=== PATIENT | male | born 1940 | race Caucasian/White ===

== ENCOUNTER 2024-03-22 09:58 | Emergency (ER) | payer MEDICARE, OTHER, SELFPAY ==
--- NOTE | ~2024-03-22 | CT_ITS ---
EXAMINATION: CT abdomen pelvis wo con DATE: 03/22/2024 12:39 INDICATION: Left flank pain. TECHNIQUE: Computed tomography (CT) of the abdomen and pelvis was performed without intravenous contr ast. Automated exposure control and iterative reconstruction technique were employed. The dose-length product was 358.58 mGy-cm. COMPARISON: None. FINDINGS: The visualized portions of the lung bases demonstrate mild atelectasis. There is mild bronc hiectasis in right middle lobe. There are tree-in-bud opacities in centrilobular nodules in right mid dle lobe. No pleural effusion. The heart size is normal. No pericardial effusion. The liver and gallb ladder are normal. Calcifications in the spleen are consistent with old granulomatous disease. There is a calcification in the pancreas, consistent with chronic pancreatitis. The adrenal glands and kidn eys are normal. There is no urolithiasis. There is a left inguinal hernia containing fat. There is an anastomosis in the sigmoid colon. There are no dilated loops of bowel. The appendix is not visualize d. There are no pathologically enlarged lymph nodes. There is no free intraperitoneal fluid. There is a total left hip arthroplasty. There is severe lumbar spondylosis. IMPRESSION: 1. No urolithiasis. 2. Left inguinal hernia containing fat. 3. Mild pneumonia in right lung middle lobe. Reviewed, dictated and finalized at location A.
[2024-03-22 10:27] VITALS: BP 169/68; PULSE 57; RESP 16; TEMP 36.7
[2024-03-22 11:51] VITALS: BP 188/82; PULSE 51; RESP 16; O2SAT 100
[2024-03-22 11:53] LABS: Basophils Percent Auto 0.6 % (0.2-1.2); Eosinophils Absolute Auto 0.1 K/mm3 (0-0.3); Eosinophils Percent Auto 2.5 % (0-4.4); Hematocrit 41.6 % (42.0-52.0); Hemoglobin 13.7 g/dL (14.0-18.0); Immature Granulocyte Absolute 0.01 K/mm3 (0.00-0.031); Immature Granulocyte Percent A 0.2 % (0-0.5); Lymphocytes Absolute Auto 1.47 K/mm3 (0.9-3.2); Mean Corpuscular HGB Conc 32.9 g/dl (32-36); Mean Corpuscular Hemoglobin 32.2 pg (26-34); Mean Corpuscular Volume 97.7 fl (80-100); Mean Platelet Volume 9.3 fl (7.4-10.4); Monocytes Absolute Auto 0.6 K/mm3 (0.1-0.6); Monocytes Percent Auto 11.2 % (2.6-8.5); Neutrophils Percent Auto 57.5 % (45.5-73.1); Platelet Count Result 156 k/mm3 (150-375); Red Blood Count 4.26 M/mm3 (4.6-6.20); Red Cell Distribution Width 12.3 % (11.5-14.5); White Blood Count 5.3 K/mm3 (4.5-10.0)
[2024-03-22 11:55] LABS: Add Urine Microscopic? YES; Appearance Urine Clear (Clear); Bilirubin Urine Negative (Negative); Blood Urine Negative (Negative); Color Urine Dark Yellow (Yellow); Glucose Urine UA Negative (Negative); Ketones Urine Negative (Negative); Leukocyte Esterase Ur Negative LEU/UL (Negative); Nitrate Urine Negative (Negative); Protein Urine Negative (Negative); Specific Grav Ur 1.018 (1.001-1.035); Urobilinogen Urine 0.2 mg/dL (<2.0); pH Urine 6.5 (5.0-9.0)
[2024-03-22 12:04] LABS: Alanine Aminotransferase 17 U/L (6-50); Albumin Level 4.2 g/dL (3.5-5.1); Alkaline Phosphatase 95 U/L (38-126); Anion Gap 7 mmol/L (4-12); Aspartate Amino Transferase 34 U/L (17-59); Bilirubin,Total 0.5 mg/dL (0.2-1.3); Blood Urea Nitrogen 27 mg/dL (9-20); Calcium 9.4 mg/dL (8.4-10.2); Carbon Dioxide 25 mmol/L (22-30); Chloride 106 mmol/L (98-107); Estimated CRCL calculation 48 ml/min; Estimated Glomerular Filt Rate > 60; Glucose 85 mg/dL (65-110); Potassium 4.8 mmol/L (3.4-5.0); Sodium 138 mmol/L (137-145)
--- NOTE | 2024-03-22 12:27 | ED.RECABL ---
HPI - Recheck/Abnormal Lab/Rx General Chief Complaint: Recheck/Abnormal Lab/Rx Stated Complaint: kidney function recheck Time Seen by Provider: 03/22/24 11:41 Source: patient Mode of arrival: ambulatory Limitations: no limitations History of Present Illness HPI narrative: This is an 84-year-old male with PMH of BPH who presents to the ED with chief complaint of left flank pain for the past couple of weeks. States the pain has been relatively intermittent and it was actually much worse last week. He has chronic low back pain and follows with pain management for this. He has been taking his pain medications as prescribed. States the pain is somewhat worse in certain positions. States that this week this pain has started to decrease but his PCP wanted get him seen and have his kidneys checked out. Does endorse chronic urinary frequency with BPH and follows with Urology. denies new back pain, fevers, chills, nausea, vomiting, diarrhea, hematuria, dysuria. Related Data Home Medications Medication Instructions Recorded Confirmed dutasteride 0.5 mg capsule 0.5 mg PO DAILY 05/15/22 09/21/23 dutasteride 0.5 mg-tamsulosin ER 1 cap PO DAILY 05/15/22 09/21/23 0.4 mg capsule ext.release 24hr mphas (Tejal) mesalamine 1.2 gram tablet,delayed 2.4 g PO DAILY 05/15/22 09/21/23 release (Lialda) tamsulosin 0.4 mg capsule (Flomax) 0.4 mg PO DAILY 05/15/22 09/21/23 Allergies Allergy/AdvReac Type Severity Reaction Status Date / Time No Known Allergies Allergy Verified 03/22/24 11:42 Review of Systems Review of Systems: All systems as dictated in HPI [facility] Past Medical History Medical History Arthritis managed by pain management, Dr. Soliman BPH (benign prostatic hyperplasia) managed by Dr. Staton Colitis Diverticulosis Other fatigue Testicular hypofunction Surgical History Surgical History History of cataract surgery right eye 2014 History of hernia repair double 1968 History of left hip replacement April 2019 History of partial surgical removal of colon 2002 Family History Family History Father Heart disease Social History Social History Smoking status: Unknown if ever smoked Tobacco type: cigarettes Second hand tobacco smoke exposure: No Smoking end date: 07/06/1959 Alcohol intake: never Substance use: never Substance use type: does not use Living arrangements: with family Occupation/Education: retired Gender identity (if verbalized by the patient): Male Sexual Orientation (if Verbalized by the Patient): Straight or Heterosexual Exam Narrative: GENERAL: Well-appearing, well-nourished, and in no acute distress. HEAD: Normocephalic, atraumatic. EYES: PERRLA and EOMI. ENT: Nares clear, no rhinorrhea or epistaxis. Mucous membranes moist. Oropharynx without tonsillar hypertrophy exudate or other lesions. NECK: Supple. No adenopathy or masses. CHEST: No respiratory distress. Clear to auscultation. No wheezes rales or rhonchi HEART: Regular rate and rhythm. No murmur heard. Normal peripheral pulses. ABDOMEN: Soft, nontender, nondistended, normal active bowel sounds. MSK: Mild left lower back/left flank tenderness. Normal range of motion. No edema. SKIN: Warm, dry, no rash. NEURO: Alert and oriented x4. No focal deficits. PSYCH: Normal mood and affect. Course Vital Signs Vital signs: Vital Signs Temperature 98.1 F 03/22/24 10:27 Pulse Rate 57 L 03/22/24 10:27 Respiratory Rate 16 03/22/24 10:27 Blood Pressure 169/68 H 03/22/24 10:27 Oxygen Delivery Room Air 03/22/24 10:27 Temperature 97.9 F 03/22/24 13:22 Pulse Rate 51 L 03/22/24 13:22 Respiratory Rate 18 03/22/24 13:22 Blood Pressure 178/84 H
[2024-03-22 13:22] VITALS: BP 178/84; PULSE 51; RESP 18; TEMP 36.6; O2SAT 99
== END 2024-03-22 13:23 | disposition home or self-care (01) ==
LOC: ANHED 13:06
PROVIDERS: Emergency Provider Physician Assistant; PCP Physician Assistant Medical
DX: M54.50 Low back pain, unspecified (principal); J18.9 Pneumonia, unspecified organism; M19.90 Unspecified osteoarthritis, unspecified site; N40.0 Benign prostatic hyperplasia without lower urinary tract symptoms; G89.29 Other chronic pain; Z98.41 Cataract extraction status, right eye; Z96.642 Presence of left artificial hip joint; Z90.49 Acquired absence of other specified parts of digestive tract; Z79.899 Other long term (current) drug therapy; K40.90 Unilateral inguinal hernia, without obstruction or gangrene, not specified as recurrent
CPT/HCPCS: 36415; 74176; 80053; 81001; 85025; 99284

== ENCOUNTER 2025-02-06 10:56 | Outpatient (CLI) | payer MEDICARE, SELFPAY ==
--- NOTE | ~2025-02-06 | MR_ITS ---
MRI of the lumbar spine Clinical History: Back pain Technique: Axial T2-weighted images, and sagittal T1-weighted, T2-weighted, and T2 fat-sat images wer e acquired. Findings: No acute fracture or subluxations seen. There is extensive reactive marrow edema about the L2-L3 L3-L4 disc spaces, presumably due to underlying degenerative disc disease (Modic type marrow ch anges). There are similar findings about the T11-T12 disc space, possible developing Schmorl's node a t the superior plate of T12. There is minimal reversal of the normal lumbar lordosis. At L1-L2, there is mild disc bulge with moderate to severe facet arthropathy. There is moderate to se maria ines spinal canal stenosis/thecal sac compression. There is moderate bilateral neural foraminal narro wing. At L2-L3, there is severe degenerative disc narrowing. Disc bulge and severe facet arthropathy are pr esent. No gagan central canal stenosis. There is moderate to severe bilateral neural foraminal narrow ing, left worse than right. At L3-L4, there is severe degenerative disc narrowing. Disc bulge and facet arthropathy are present w ith moderate central canal stenosis/thecal sac compression. There is severe right neural foraminal na rrowing, and moderate left neural foraminal narrowing. At L4-L5, there is severe degenerative distended with partial fusion across the disc space. There is advanced facet arthropathy. No central canal stenosis. There is moderate to advanced right neural for aminal narrowing. Left neural foramen preserved. At L5-S1, there is severe degenerative disc narrowing. There is advanced facet arthropathy. No centra l canal stenosis. There is severe bilateral neural foraminal conference. Paravertebral soft tissues are unremarkable. Impression: Severe degenerative changes throughout the lumbar spine, as detailed above. Reviewed, dictated and finalized at location M. Impression: Severe degenerative changes throughout the lumbar spine, as detailed above.
== END 2025-02-06 10:57 | disposition home or self-care (01) ==
PROVIDERS: PCP Physician Assistant Medical
DX: M47.816 Spondylosis without myelopathy or radiculopathy, lumbar region (principal); M47.817 Spondylosis without myelopathy or radiculopathy, lumbosacral region
CPT/HCPCS: 72148

== ENCOUNTER 2025-02-12 12:57 | Emergency (ER) | payer MEDICARE, SELFPAY ==
--- OUTSIDE RECORDS SUMMARY | 2025-02-12 12:59 | XMS_ITS | Clinical Summary ---
Author Organization [facility] Address [facility] [place] [address] Care Team Providers Care Merchandising Execution Manager Name Role Phone Gabi Conti PA-C Primary Care Provider +1- [phone] Allergies No known active allergies Medications No known medications Social History Tobacco Use Types Packs/Day Years Used Date Smoking Tobacco: Never Assessed Sex and Gender Information Value Date Recorded Sex Assigned at Not on file Legal Sex Male 6:09 PM CDT Gender Identity Not on file Sexual Orientation Not on file Last Filed Vital Signs Vital Sign Reading Time Taken Comments Blood Pressure 164/71 02/13/2023 3:52 PM CDT Pulse 54 02/13/2023 3:52 PM CDT Temperature 36.4 C (97.6 F) 02/13/2023 3:52 PM CDT Respiratory Rate 16 02/13/2023 3:52 PM CDT Oxygen Saturation 99% 02/13/2023 3:52 PM CDT Inhaled Oxygen Concentration - - Weight 93 kg (205 lb) 02/13/2023 3:52 PM CDT Height 185.4 cm (6' 1) 02/13/2023 3:52 PM CDT Body Mass Index 27.05 02/13/2023 3:52 PM CDT Plan of Treatment Health Maintenance Due Date Last Done Comments Zoster Vaccines (1 of 2) 01/05/1988 Annual Medicare Wellness Visit 2003 RSV Immunization or 60+ Years (1 - 1-dose 75+ series) 2013 Pneumococcal Vaccine: 50+ Years (2 of 2 - PPSV23) 04/26/2017 04/26/2016 COVID-19 Vaccine ( - 2023-2 5 season) 2024 09/29/2020, 09/01/2020 DTaP, Tdap and Td Vaccines ( 2 - Td or Tdap) 11/21/2025 11/22/2015 Meningococcal B Vaccine Aged Out No l onger eligible based on patient's age to complete this topic Meningococcal Vaccine Aged Out No mark baljeet eligible based on patient's age to complete this topic RSV Immunizations Under 20 Months Aged Out No longer eligible b ased on patient's age to complete this topic Insurance MEDICARE [facility] [employer]URANCE [employer] MEDICARE Care Teams Merchandising Execution Manager Relationship Specialty Start Date End Date Gabi Conti PA-C [address] [place], [place] [id number] [place] [address] PCP - General PHYSICIAN HEAD OF ETHICS AND COMPLIANCE 02/13/23
--- OUTSIDE RECORDS SUMMARY | 2025-02-12 12:59 | XMS_ITS | Encounter Summary ---
Author Organization [facility] Care Team Providers Care Petroleum Refinery Operator Name Role Phone Vivek Lee MD Primary Care Provider [phone]- [phone] Unknown, Notinfile Primary Care Provider Unavail able Vivek Lee MD Primary Care Provider +- [phone] Encounter Details Date Type Department Care Team (Latest Contact Info) Description 09/11/2016 Orders Only [facility] ProviderKody MD [address] [place] [id number] Social History Tobacco Use Types Packs/Day Years Used Date Smoking Tobacco: Never Sex and Gender Information Value Date Recorded Sex Assigned at Not on file Legal Sex Male 1:18 PM CADET DECK Gender Identity Not on file Sexual Orientation Not on file documented as of this encounter Plan of Treatment Not on file documented as of this encounter Procedures Procedure Name Priority Date/Time Associated Diagnosis Comments COLONOSCOPY - SCAN 09/11/2016 12 :00 AM CADET DECK documented in this encounter Results * COLONOSCOPY - SCAN (09/11/2016 12:00 AM CADET DECK) Narrative 09/11/2016 12:00 AM CADET DECK Ordered by an unspecified provider. Historical Provider Final Res ult documented in this encounter Visit Diagnoses Not on filedocumented in this encounter Care Teams Petroleum Refinery Operator Relationship Specialty Start Date End Date Vivek Lee MD PCP - General 02/02/17 03/05/17 Unknown, Notinfile PCP - General 03/06/17 03/16/17 Vivek Lee MD PCP - General 03/17/17 05/06/22 documented as of this encounter
--- OUTSIDE RECORDS SUMMARY | 2025-02-12 12:59 | XMS_ITS ---
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 He rates his pain level today as an 8/10. Medications Medication SIG (Take, Route, Frequency, Duration) Notes Start Date End Date Status Tamsulosin HCl 0.4 MG TAKE 1 CAPSULE BY MOUTH TWICE DAILY DIRECTED Oral; Duration: 90 Days Active Diclofenac Sodium 1 % APPLY 4GM TO THE AFFECTED AREA EVERY 4 HOURS NEEDED External; Duration: 30 Days Active diazePAM 5 MG 1 tablet as needed Orally Once a day; Duration: 1 days 1-2 tablets 60minutes before procedure 01/19/2025 Active Mesalamine 1.2 GM TAKE 1 TABLET BY MOUTH TWICE DAILY Oral; Duration: 90 Days Active oxyCODONE-Acetaminophe n 10-325 MG 1 tablet as needed Orally twice per day; Duration: 30 days DO NOT FILL UNTIL 01/22/25 01/12/2025 Active Dutasteride 0.5 MG Oral; Duration: 90 Days Active Problems Problem Type SNOMED Code ICD Code Onset Dates Problem Status W/U Status Risk Notes Problem Lumbar post-laminectom y syndrome (150163164) Lumbar postlaminectomy syndrome (M96.1) Active confirmed Problem History of total replacement of left hip joint (48199533119307 05) Status post total hip replacement, 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 Vital Signs Height 6ft 1in in 02/07/2025 Weight 210 lbs 02/07/2025 BMI 27.7 kg/m2 02/07/2025 Height-cm 185.42 cm 02/07/2025 Weight-kg 95.26 kg 02/07/2025 Encounters Encounter Location Date Provider Diagnosis [facility] [address] [place] [address] 02/07/2025 James Eliezer Pain in right should er M25.511 ; Lumbar pain M54.50 ; History of left hip replacement Z96.642 ; 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 ; Lumbar spondylosis M47.816 ; Lumbar radiculopathy M54.16 ; Osteoarthritis M19.90 ; Hypertension I10 ; Hip pain, right M25.551 ; Thoracic spondylosis M47.814 ; Cervical pain M54.2 ; Cervical spondylosis M47.812 ; Lumbar postlaminectomy syndrome M96.1 ; Right hip pain M25.551 and Status post total hip replacement, left Z96.642 Assessments Encounter Date Diagnosis (ICD Code) Assessment Notes Treatment Notes Treatment Clinical Notes Section Notes 02/07/2025 Pain in right shoulder (ICD-10 - M25.511) 02/07/2025 Lumbar pain (ICD-10 - M54.50) 02/07/2025 History of left hip replacement (ICD-10 - Z96.642) 02/07/2025 USP (current) use of opiate analgesic (ICD-10 - Z79.891) 02/07/2025 Lumbar spondylosis (ICD-10 - M47.816) 02/07/2025 Lumbar radiculopathy (ICD-10 - M54.16) 02/07/2025 Osteoarthritis (ICD-10 - M19.90) 02/07/2025 Hypertension (ICD-10 - I10) 02/07/2025 Hip pain, right (ICD-10 - M25.551) 02/07/2025 Thoracic spondylosis (ICD-10 - M47.814) 02/07/2025 Cervical pain (ICD-10 - M54.2) 02/07/2025 Cervical spondylosis (ICD-10 - M47.812) 02/07/2025 Lumbar postlaminectomy syndrome (ICD-10 - M96.1) 02/07/2025 Right hip pain (ICD-10 - M25.551) 02/07/2025 Status post total hip replacement, left (ICD-10 - Z96.642) 02/07/2025 Other The plan of car e is to consider a low-profile brace. Patient's pain medication is refilled. Patient is using on average 1/day of oxycodone 10325. Patient had nasal Narcan called in as well. Risk-benefit alternatives were discussed with patient. Plan Of Treatment Treatment Notes Assessment Notes Other The plan of care is to consider a low-profile brace. Patient's pain medication is refilled. Patient is using on average 1/day of oxycodone 10325. Patient had nasal Narcan called in as well. Risk-benefit alternatives were discussed with patient. Next Appt Details Follow Up: Patient will foll ow-up in 1 month. Activity as tolerated. Ref[place]., [place], [id number], Reason: Provider Name:Ines aguilar, 03/14/2025 10:00:00 AM, [id number] [place] [address], [address] [place] [address], [id number], Progress Notes * Lucho GALLO DDOB:08/1939 (85 yo M)Acc No.[id number]:02/07/2025 Progress Notes Patient: Lucho FALK Provider: Halley Martins MD :1940 A ge:85 Y S ex:Male Date:02/07/2025 Address:[address] [place] [address], [facility] Subjective: * Chief Complaints: * 1 . Mid, low back. 2. Patient is an 85-year-old male who is present today with a chief complaint of lumbar spine pain and mid back pain. He rates his pain level today as an 8/10.. * HPI: * Established Patient: Established Patient Questionnaire: 1 . Are you currently taking a Blood Thinner Medication? N o 2 . Do you have an allergy to I.V. Contrast or Shellfish? N o 3 . List any changes to medical history. (eg; Falls, Test, Scans, Blood Work, and Hospitalizations) T est 4 . Have you been exposed to anyone with COVID in the last 2 weeks? N o 5 . Have you been exposed to anyone with the FLU in the last 72 hours? N o 6 . What is your Pain Level today? (1-10, Scroll and select one) 8 7 . Where is your pain located? M id Back,Low Back 8 . After your last visit, what Percentage of improvement did you experience? 0 9 . Are you doing Physical Therapy, Chiropractic, or Massage Therapy? N o 1 0. Are you doing an at home Exercise Program? Y es 1 1. What activities or positions increase your Pain? (Scroll to select one or multiple) S tanding,Walking,Chores 1 2. What activities or positions decrease your Pain? (Scroll to select one or multiple) L jose r down 1 3. How would you describe your Pain? (Scroll to select one or multiple) A christine 1 4. Are you having difficulty sleeping? Y es 1 5. When was the last time you had your blood drawn? (Please enter your best estimate) J une 2024 1 6. When was your last Mammogram? (Please put N/A if you are male, for Females please put the best Estimate or Never.) N /A 1 7. When was your last Colonoscopy? (Please put the best Estimate or Never.) 2 017 1 9. Any changes to your medications or allergies since your last visit? N o 1 8. Do you need any refills on your medications today? Y es 1 9. Please list ALL changes to Medications or Allergies? N one 2 0. Are you Diabetic? N o 2 1. Do you suffer from Constipation? N o * Pain Management:: Patient states that he had an MRI scan at [facility] on 02/06/2025. Patient states that he is having severe low back pain. Patient states that he is having radiation of the leg. He has right hip stiffness worse in the mornings. He is taking his pain medication 1 in the morning occasionally 1 in the evening. He is averaging only 1/day. Patient does not have an emergency Narcan that he can find. 1 will be sent in today with his refill. Patient starts through 2 performing activities of the gardening. Forward flexion at the waist when he is gardening weeding etc. is the worst for him. He gets both hip pain and back pain. He needs to rest afterwards. He states that he gets pain after transfers depending on how long he has been sitting or laying down. Patient has severe lower lumbar degenerative changes on his MRI scan. There are Modic changes and disc spondylitic changes. Disc base height loss is noted. Patient had a history of previous surgery at L3-4 many years ago by Dr. Hinson. He does not want to consider any further surgeries. I talked to patient about the use of the brace that showed an LSO and a low-profile. Patient wants to think about the low-profile brace to see whether or not he would use it. Patient did feel it gave him support but also restricted his ability to bend. He is not sure that he would be compliant with its use. * ROS: G eneral/Constitutional: Denies Change appetite. Denies Chills. Denies Fatigue. Denies Fever. Denies Lightheadedness. ENT: Denies Tinnitus. Denies Dysphagia. Ophthalmologic: Denies Blurred vision. * Medical History: O steoarthritis, Leg length discrepancy short left 10mm. * Surgical History: L THR Dr. Proctor 04/24. * Family History: F ather: , Sepsis. M other: . * Social History: * Established Patient: S moking D o you smoke? N o Form Scores C ESD-R PMQ-R GPCOG Date 0 11/10/2024 C ESD-R Score 0 C ESD-R Risk L ow Risk (0 - 16) P MQ-R Score 2 P MQ-R Risk L ow Risk (0 - 34) G PCOG Score 9 G PCOG Risk N o Risk (9) C ESD-R PMQ-R GPCOG Testing Interval L ow Risk (every 6 months) C ESD-R PMQ-R GPCOG Next Test Due 1 07/13/2024 S OAPP Date 1 07/17/2023 S OAPP-R Score 0 S OAPP-R Risk L ow Risk (0 -9) S OAPP-R Testing Interval L ow Risk (every 6 months) C OMM Date 1 07/17/2023 C OMM Score 0 C OMM Risk N egative (< 9) * COMM: C OMM 1 . In the past 30 days, how often have you had trouble with thinking clearly or had memory problems? 0 - Never 2 . In the past 30 days, how often do people complain that you are not completing necessary tasks? (i.e., doing things that need to be done, such as going to class, work or appointments) 0 - Never 3 . In the past 30 days, how often have you had to go to someone other than your prescribing physician to get sufficient pain relief from medications? (i.e., another doctor, the Emergency Room, friends, street sources) 0 - Never 4 . In the past 30 days, how often have you taken your medications differently from how they are prescribed? 0 - Never 5 . In the past 30 days, how often have you seriously thought about hurting yourself? 0 - Never 6 . In the past 30 days, how much of your time was spent thinking about opioid medications (having enough, taking them, dosing schedule, etc.)??0- Never 7 . In the past 30 days, how often have you been in an argument? 0 - Never 8 . In the past 30 days, how often have you had trouble controlling your anger (e.g., road rage, screaming, etc.)? 0 - Never 9 . In the past 30 days, how often have you needed to take pain medications belonging to someone else? 0 - Never 1 0. In the past 30 days, how often have you been worried about how you're handling your medications? 0 - Never 1 1. In the past 30 days, how often have others been worried about how you're handling your medications? 0 - Never 1 2. In the past 30 days, how often have you had to make an emergency phone call or show up at the clinic without an appointment? 0 - Never 1 3. In the past 30 days, how often have you gotten angry with people? 0 - Never 1 4. In the past 30 days, how often have you had to take more of your medication than prescribed? 0 - Never 1 5. In the past 30 days, how often have you borrowed pain medication from someone else? 0 - Never 1 6. In the past 30 days, how often have you used your pain medicine for symptoms other than for pain (e.g., to help you sleep, improve your mood, or relieve stress)? 0 - Never 1 7. In the past 30 days, how often have you had to visit the Emergency Room? 0 - Never * SOAPP-R: S OAPP-R 1 . How often do you have mood swings? 0 - Never 2 . How often have you felt a need for higher doses of medication to treat your pain? 0 - Never 3 . How often have you felt impatient with your doctors? 0 - Never 4 . How often have you felt that things are just too overwhelming that you can't handle them? 0 - Never 5 . How often is there tension in the home??0- Never 6 . How often have you counted pain pills to see how many are remaining? 0 - Never 7 . How often have you been concerned that people will mosaic tiler you for taking pain medication? 0 - Never 8 . How often do you feel bored? 0 - Never 9 . How often have you taken more pain medication than you were supposed to? 0 - Never 1 0. How often have you worried about being left alone? 0 - Never 1 1. How often have you felt a craving for medication? 0 - Never 1 2. How often have others expressed concern over your use of medication? 0 - Never 1 3. How often have any of your close friends had a problem with alcohol or drugs? 0 - Never 1 4. How often have others told you that you had a bad temper? 0 - Never 1 5. How often have you felt consumed by the need to get pain medication? 0 - Never 1 6. How often have you run out of pain medication early? 0 - Never 1 7. How often have others kept you from getting what you deserve? 0 - Never 1 8. How often, in your lifetime, have you had legal problems or been arrested? 0 - Never 1 9. How often have you attended an AA or NA meeting? 0 - Never 2 0. How often have you been in an argument that was so out of control that someone got hurt? 0 - Never 2 1. How often have you been sexually abused??0- Never 2 2. How often have others suggested that you have a drug or alcohol problem? 0 - Never 2 3. How often have you had to borrow pain medications from your family or friends? 0 - Never 2 4. How often have you been treated for an alcohol or drug problem? 0 - Never * GPCOG: G PCOG 1 . I am going to give you a name and address. After I have said it, I want you to repeat it. Remember this name and address because I am going to ask you to tell it to me again in a few minutes: Evaristo Holt, [address]. Max 4 attempts R ead to the patient. 2 . What is the date? (exact only) C orrect 3 . Choose which image indicates the hours of a clock (correct spacing required) C orrect 4 . Which clock shows 10 minutes past eleven o'clock? C orrect 5 . Can you tell me something that happened in the news recently? (Recently = in the last week. If a general answer is given, eg war, lot of rain, ask for details. Only specific answer scores). C orrect 6 . What was the name and address I asked you to remember? First Name = Evaristo C orrect 6 . What was the name and address I asked you to remember? Last Name = Jonathon C orrect 6 . What was the name and address I asked you to remember? Street Number = C orrect 6 . What was the name and address I asked you to remember? Street Name = [facility] C orrect 6 . What was the name and address I asked you to remember? City = [place] C orrect T otal Score (out of 9) 9 * Medications: T aking Dutasteride 0.5 MG Capsule Oral , Taking Tamsulosin HCl 0.4 MG Capsule TAKE 1 CAPSULE BY MOUTH TWICE DAILY DIRECTED Oral , Taking Diclofenac Sodium 1 % Gel APPLY 4GM TO THE AFFECTED AREA EVERY 4 HOURS NEEDED External , Taking Mesalamine 1.2 GM Tablet Delayed Release TAKE 1 TABLET BY MOUTH TWICE DAILY Oral , Taking oxyCODONE-Acetaminophen 10-325 MG Tablet 1 tablet as needed Orally twice per day , Notes to Pharmacist: DO NOT FILL UNTIL 01/22/25, Taking diazePAM 5 MG Tablet 1 tablet as needed Orally Once a day 1-2 tablets 60minutes before procedure, Medication List reviewed and reconciled with the patient * Allergies: N .K.D.A. Objective: * Vitals: H t: 6ft 1in, Wt: 210 lbs, Pain scale: 8 1-10, BMI: 27.7 Index, Ht-cm: 185.42 cm, Wt-k.26 kg, Body Surface Area: 2.21. * Examination: G eneral Examination: O n examination he is alert time place and person vital signs stable. Speech nonslurred respirations nonlabored. He sits with his right leg extended. He transfers with pushing off of his arms. His gait is minimally antalgic but nonassisted. It improves the longer he walks. Well-healed scar from the previous lumbar surgery is noted. Patient has significant neural tension bilaterally both lower extremities. No lateralizing neurologic deficits. Patient has history of left total hip replacement and a well-healed scar. Assessment: * Assessment: 1. P ain in right shoulder - M25.511 (Primary) 2 . L umbar pain - M54.50? 3. H istory of left hip replacement - Z96.642 4 . L kesha term (current) use of opiate analgesic - Z79.891 5 . L umbar spondylosis - M47.816 6. L umbar radiculopathy - M54.16 7 . O steoarthritis - M19.90 8 . H ypertension - I10 9 . H ip pain, right - M25.551? 10. T horacic spondylosis - M47.814 1 1. C ervical pain - M54.2 1 2. C ervical spondylosis - M47.812 1 3. L umbar postlaminectomy syndrome - M96.1 1 4. R ight hip pain - M25.551 1 5.?Status post total hip replacement, left - Z96.642 Plan: * Treatment: * Follow Up: P atient will follow-up in 1 month. Activity as tolerated. [place]., [place], [id number] * Billing Information: * Visit Code: * Procedure Codes: * Electronic signature of Neema Martins MD on 02/12/2025 at 12:59 PM CDT Sign off status: Pending * Provider: Halley Martins MD Date: 0 02/07/2025 Generated for Marco A grey/Derrick/Leo on: 0 02/12/2025 12:59 PM CDT History and Physical Notes * HPI (History of Present Illness) Category Sub-Category Detail Notes Category Not es *Pain Management: Patient states that he had an MRI scan at [facility] on 02/06/2025. Patient states that he is having severe low back pain. Patient states that he is having radiation of the leg. He has right hip stiffness worse in the mornings. He is taking his pain medication 1 in the morning occasionally 1 in the evening. He is averaging only 1/day. Patient does not have an emergency Narcan that he can find. 1 will be sent in today with his refill. Patient starts through 2 performing activities of the gardening. Forward flexion at the waist when he is gardening weeding etc. is the worst for him. He gets both hip pain and back pain. He needs to rest afterwards. He states that he gets pain after transfers depending on how long he has been sitting or laying down. Patient has severe lower lumbar degenerative changes on his MRI scan. There are Modic changes and disc spondylitic changes. Disc base height loss is noted. Patient had a history of previous surgery at L3-4 many years ago by Dr. Hinson. He does not want to consider any further surgeries. I talked to patient about the use of the brace that showed an LSO and a low-profile. Patient wants to think about the low-profile brace to see whether or not he would use it. Patient did feel it gave him support but also restricted his ability to bend. He is not sure that he would be compliant with its use. *Established Patient Established Patient Questionnaire: 1. Are you currently taking a Blood Thinner Medication?: No 2. Do you have an allergy to I.V. Contra st or Shellfish?: No 3. List any changes to medic al history. (eg; Falls, Test, Scans, Blood Work, and Hospitalizations): Test 4. Have you been exposed to anyone with COVID in the last 2 weeks?: No 5. Have you been exposed to anyone with the FLU in the last 72 hours?: No 6. What is your Pain Level today? (1-10, Scroll and select one): 8 7. Where is your pain located?: Mid Back ,Low Back 8. After your last visit, wh at Percentage of improvement did you experience?: 0 9. Are you doing Physical Therapy, Chiro practic, or Massage Therapy?: No 10. Are you doing an at home Exercise Pr ogram?: Yes 11. What activities or posit ions increase your Pain? (Scroll to select one or multiple): Standing,Walking,Chores 12. What activities or posit ions decrease your Pain? (Scroll to select one or multiple): Lying down 13. How would you describe y our Pain? (Scroll to select one or multiple): Aching 14. Are you having difficulty sleeping?: Yes 15. When was the last time y ou had your blood drawn? (Please enter your best estimate): December 2024 16. When was your last Mammo gram? (Please put N/A if you are male, for Females please put the best Estimate or Never.): N/A 17. When was your last Colon oscopy? (Please put the best Estimate or Never.): 2016 19. Any changes to your medications or a llergies since your last visit?: No 18. Do you need any refills on your medi cations today?: Yes 19. Please list ALL changes to Medicatio ns or Allergies?: None 20. Are you Diabetic?: No 21. Do you suffer from Constipation?: No Examination Category Sub-Category Detail Notes Category Not es General Examination On exami nation he is alert time place and person vital signs stable. Speech nonslurred respirations nonlabored. He sits with his right leg extended. He transfers with pushing off of his arms. His gait is minimally antalgic but nonassisted. It improves the longer he walks. Well-healed scar from the previous lumbar surgery is noted. Patient has significant neural tension bilaterally both lower extremities. No lateralizing neurologic deficits. Patient has history of left total hip replacement and a well-healed scar.
--- OUTSIDE RECORDS SUMMARY | 2025-02-12 12:59 | XMS_ITS | Encounter Summary ---
Author Organization [facility] Address 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
--- OUTSIDE RECORDS SUMMARY | 2025-02-12 12:59 | XMS_ITS | Clinical Summary ---
Author Organization [facility] Address [address] [place] [id number] Care Team Providers Care Leadership Development Instructor Name Role Phone Unavailable Primary Care Provider Unavailabl e Allergies No known active allergies Medications mesalamine (Lialda) 1.2 gram EC tablet Take 1.2 g by mouth daily Active oxyCODONE-acetam inophen (PERCOCET) 10-325 mg per tablet Take 10-325 mg by mouth every 6 (six) hours as needed Active multivitamin tablet Take 1 tablet by mouth daily Active dutasteride-tams ulosin 0.5-0.4 mg capsule, ER multiphase 24 hr Take 1 tablet by mouth daily Active Active Problems Problem Noted Date Diagnosed Date 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 Preoperative clearance 03/28/2020 Assessment & Plan (03/28/2020 9:38 AM CDT): EKG is little change from 2014. The only difference is a Q-wave noted in V2 versus previous EKG. This probably represents more a difference in lead placement than any pathology. He is asymptomatic and no history of heart disease. Same sinus bradycardia. Normal intervals. Normal axis . Results were discussed with the patient. Computer reading was discussed suggesting possibility of old heart attack but I disagree with this though I did offer him referral for stress test or cardiology opinion but he declines today. Hypercholesterolemia 08/05/2017 Assessment & Plan (03/28/2020 9:30 AM CDT): Dietary management/adequate control. EKG is little changed from 2014. Still sinus bradycardia. Normal axis and normal intervals. Q-wave in V1 was present in 2014. Q-wave in V2 but not be 3 and present EKG. This likely represent more lead placement difference than any true pathology particularly as he is asymptomatic. No history of heart disease. No symptoms. Assessment & Plan (02/02/2020 9:01 AM CDT): Stable mild elevation with dietary management Colitis 08/04/2017 Assessment & Plan (03/28/2020 9:22 AM CDT): No active colitis. Medication from son. Assessment & Plan (02/02/2020 9:01 AM CDT): Adequate control on on medication which is prescribed by his son. Low back pain 09/25/2015 Assessment & Plan (02/02/2020 9:02 AM CDT): Stable and managed by pain management. BPH (benign prostatic hyperplasia) 09/25/2015 Assessment & Plan (03/28/2020 9:22 AM CDT): Continue medication at same dosage. Well controlled. He does not see a urologist. PSA normal in August so does not need repeated. Assessment & Plan (02/02/2020 9:00 AM CDT): Continue medication at same dosage. Well controlled. 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 If son is managing his low testosterone he needs to get labs from his son he is told today. Discussed risk associated with testosterone therapy. This includes cardiovascular risk and increased risk of prostate cancer. Immunizations Immunization Administration Dates Next Due Influenza, Quadrivalent, Hig h Dose, Preservative Free, Intrr 03/28/2020 Influenza, Trivalent, High D ose, Split, Preservative Free, Intramuscular 02/14/2018 Influenza, Trivalent, IM (MDV) 05/02/2014 Influenza, Trivalent, Preservative Free, Intramu scular 04/26/2016 Influenza, Unspecified 04/11/2019 Moderna SARS-CoV-2 Monovalent Vaccination (12+ Y RS) 09/29/2020,09/01/2020 Pneumococcal Conjugate PCV 13 04/26/2016 Tdap 11/22/2015 Surgical History Surgery Date Site/Laterality Comments CATARACT EXTRACTION Right x2 Medical History Medical History Date Comments Insomnia Testicular hypofunction BPH (benign prostatic hyperplasia) Colitis Hypercholesterolemia Low back pain Other chronic pain Family History Medical History Relation Name Comments No Known Problems Father Cancer Maternal Grandmother No Known Problems Mother Relation Name Status Comments Father Maternal Grandmother Mother Social History Tobacco Use Types Packs/Day Years Used Date Smoking Tobacco: Former Cigarettes Q uit: 1968 Smokeless Tobacco: Never Alcohol Use Standard Drinks/Week Comments Never 0 (1 standard drink = 0.6 oz pur e alcohol) AUDIT-C Answer Date Recorded Q1: How often do you have a drink containing alc ohol? 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 Gender Identity Not on file Sexual Orientation Not on file Obstetrics History Last Filed Vital Signs Vital Sign Reading Time Taken Comments Blood Pressure 136/80 03/28/2020 8:52 AM CDT Pulse 72 03/28/2020 8:52 AM CDT Temperature 36.1 C (96.9 F) 03/28/2020 8:52 AM CDT Respiratory Rate 20 03/28/2020 8:52 AM CDT Oxygen Saturation 98% 03/28/2020 8:52 AM CDT Inhaled Oxygen Concentration - - Weight 102.7 kg (226 lb 6.4 oz) 03/28/2020 8:52 AM CDT Height 182.2 cm (5' 11.73) 03/28/2020 8:52 AM C DT Body Mass Index 30.94 03/28/2020 8:52 AM CDT Plan of Treatment Not on file Insurance MEDICARE [facility] GENERIC Member Subscriber Plan / Payer ( fective 2017-Present) Name:Lucho Parada Relation to Subscriber:Self Name:Lucho Parada Payer ID:[id number] Group ID:Not on file Type:[facility] Address: [address] [place] [address]
--- OUTSIDE RECORDS SUMMARY | 2025-02-12 12:59 | XMS_ITS | Encounter Summary ---
Author Organization [facility] Address [address] [place] [address] Care Team Providers Care Aircraft Line Assembler Name Role Phone Vivek Lee MD Primary Care Provider Encounter Details Date Type Department Care Team (Late st Contact Info) Description 04/24/2003 Outpatient Historical [facility] Support Serv. (Adt Card[facility]) [address] [place] [id number] Daryl Hidalgo Social History Tobacco Use Types Packs/Day Years Used Date Smoking Tobacco: Never Assessed Sex and Gender Information Value Date Recorded Sex Assigned at Not on file Legal Sex Male 2:50 AM LOPPER Gender Identity Not on file Sexual Orientation Not on file documented as of this encounter Plan of Treatment Not on file documented as of this encounter Visit Diagnoses Not on filedocumented in this encounter Care Teams Aircraft Line Assembler Relationship Specialty Start Date End Date Vivek Lee MD PCP - General Family Practice 08/31/15 documented as of this encounter
--- OUTSIDE RECORDS SUMMARY | 2025-02-12 12:59 | XMS_ITS | Encounter Summary ---
Author Organization [facility] Facility Care Team Providers Care Joint Machine Operator Name Role Phone Vivek Lee MD Primary Care Provider [phone]- [phone] Unknown, Notinfile Primary Care Provider Unavail able Vivek Lee MD Primary Care Provider +1- [phone] Encounter Details Date Type Department Care Team (Latest Contact Info) Description 06/06/2016 Orders Only [facility] ProviderKody MD [address] [place] [address] Social History Tobacco Use Types Packs/Day Years Used Date Smoking Tobacco: Never Sex and Gender Information Value Date Recorded Sex Assigned at Not on file Legal Sex 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 Historical Provider Final Res ult * SCAN - LABS (06/06/2016 12:00 AM HEALTH CLINICIAN) Narrative 06/06/2016 12:00 AM HEALTH CLINICIAN Ordered by an unspecified provider. us Historical Provider Final Res ult documented in this encounter Visit Diagnoses Not on filedocumented in this encounter Care Teams Joint Machine Operator Relationship Specialty Start Date End Date Vivek Lee MD PCP - General 02/02/17 03/05/17 Unknown, Notinfile PCP - General 03/06/17 03/16/17 Vivek Lee MD PCP - General 03/17/17 05/06/22 documented as of this encounter
--- OUTSIDE RECORDS SUMMARY | 2025-02-12 12:59 | XMS_ITS | Encounter Summary ---
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 Historical Provider Final Res ult * SCAN - LABS (12/25/2017 12:00 AM CDT) Narrative 12/25/2017 12:00 AM CDT Ordered by an unspecified provider. Historical Provider Final Res ult documented in this encounter Visit Diagnoses Not on filedocumented in this encounter Care Teams Envelope Sealer Relationship Specialty Start Date End Date Vivek Lee MD PCP - General 03/17/17 05/06/22 documented as of this encounter
--- OUTSIDE RECORDS SUMMARY | 2025-02-12 12:59 | XMS_ITS | Encounter Summary ---
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 Historical Provider Final Res ult * SCAN - LABS (04/27/2018 12:00 AM CDT) Narrative 04/27/2018 12:00 AM CDT Ordered by an unspecified provider. Historical Provider Final Res ult documented in this encounter Visit Diagnoses Not on filedocumented in this encounter Care Teams Pets And Pet Supplies Salesperson Relationship Specialty Start Date End Date Vivek Lee MD PCP - General 03/17/17 05/06/22 documented as of this encounter
--- OUTSIDE RECORDS SUMMARY | 2025-02-12 12:59 | XMS_ITS | Encounter Summary ---
Author Organization [facility] Facility Care Team Providers Care Cigar Maker Name Role Phone Vivek Lee MD Primary Care Provider +1- [phone] Unknown, Notinfile Primary Care Provider Unavail able Vivek Lee MD Primary Care Provider +1- [phone] Encounter Details Date Type Department Care Team (Latest Contact Info) Description 12/31/2016 Orders Only [facility]IN[facility] ProviderKody MD [address] [place] [address] Social History Tobacco Use Types Packs/Day Years Used Date Smoking Tobacco: Never Sex and Gender Information Value Date Recorded Sex Assigned at Not on file Legal Sex Male 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 Historical Provider Final Res ult * SCAN - LABS (01/07/2017 12:00 AM CDT) Narrative 01/07/2017 12:00 AM CDT Ordered by an unspecified provider. us Historical Provider Final Res ult documented in this encounter Visit Diagnoses Not on filedocumented in this encounter Care Teams Cigar Maker Relationship Specialty Start Date End Date Vivek Lee MD PCP - General 02/02/17 03/05/17 Unknown, Notinfile PCP - General 03/06/17 03/16/17 Vivek Lee MD PCP - General 03/17/17 05/06/22 documented as of this encounter
--- OUTSIDE RECORDS SUMMARY | 2025-02-12 12:59 | XMS_ITS | Patient Health Record ---
Author Organization [facility] Address [address] [place] [address] Care Team Providers Care Astrochemist Name Role Phone Eliezer, Sherri Unavailable [phone] Stefanie Jayden Unavailable [phone] Johny HUTSON, Ines Unavailable [phone] Farida Mack Unavailable [phone] James Martins Unavailable [phone] Allergies No Known Allergies Results Component Value Reference Range Notes Ecato Profil e Reviewed date:10/19/2024 04:55:15 PM Interpretation: Performing Lab:[facility] (CLIA#: [id number]), [address] [place] [address], Director - Madai Richards Notes/Report: These tests were developed and their performance characteristics determined by [facility]. They have not been cleared or approved by the [place] Food and Drug Administration. Certifying Monkey Keeper: Raj Brown (Remote [id number]) Analyzed at [facility] (CLIA#: [id number]) - [address] [place] [address] - Neonatal Social Worker: Madai Spencer Oxycodone Ur CMP 2767 >=100 ng/mL COMPLIANT: Test result is consistent and expected with prescribed drug. BioDetect EXPECTED Test result is consistent with routinely analyzed human urine. 6MAM Ur Ql Cfm <10 >=10 ng/mL NONE DETECTED Amphetamines Ur Ql Cfm <100 >=100 ng/mL NONE DETECTED Benzodiaz Ur Ql Cfm <50 >=50 ng/mL NONE DET ECTED Buprenorphine Ur Ql Cfm <1 >=1 ng/mL NONE DETECTED BZE Ur Ql Cfm <50 >=50 ng/mL NONE DETECTED Fentanyl+Norfentanyl Ur Ql Cfm <5 >=5 ng/mL NONE DETECTED Gabapentin Ur Ql <5 >=5 mcg/mL NONE DETECT ED Carisoprodol+Meprob Ur Ql Scn <200 >=200 ng/mL NONE DETECTED Methadone Ur Ql Cfm <200 >=200 ng/mL NONE DET ECTED Meperidine Ur Ql Cfm <100 >=100 ng/mL NONE DE TECTED Opiates Ur Ql Cfm >=100 >=100 ng/mL POSITIVE Oxymorphone Ur Cfm-mCnc 445 >=100 ng/mL POSI TIVE Noroxycodone Ur Cfm-mCnc 1937 >=100 ng/mL POS ITIVE Oxycodone Ur Cfm-mCnc 384 >=100 ng/mL POSITI VE Pregabalin(Lyrica) Ur Ql Cfm <5 >=5 mcg/mL NONE DETECTED Tramadol Ur Ql Cfm <100 >=100 ng/mL NONE DETE CTED Creat Ur-mCnc 123.5 20 - 370 mg/dL NORMAL Creatinine and pH are performed for specimen validity and not diagnostic purposes. pH Ur 7.46 4.5 - 9.0 NORMAL Creatinine and pH are performed for specimen validity and not diagnostic purposes. Alcohol Metabolites Ur Ql Cfm <200 >=200 ng/mL NONE DETECTED Ethyl sulfate Ur Cfm-mCnc <200 >=200 ng/mL NO NE DETECTED Synthetic Stimulants Ur Ql Cfm <1 >=1 ng/mL NONE DETECTED ROLL FINISHER Not Otherwise Specified Ur Ql Cfm <1 >=1 ng/mL NONE DETECTED Synthetic Cannabinoids Ur Ql Cfm <1 >=1 ng/m L NONE DETECTED Hallucinogens/Dissociatives Ur Ql Cfm <1 >=1 ng/mL NONE DETECTED Rn Utilization Management Um Benzodiazepines Ur Ql Cfm <1 >=1 ng/mL NONE DETECTED Rn Utilization Management Um Opioids Ur Ql Cfm <1 >=1 ng/mL N ONE DETECTED THC Ur Ql Scn <20 >=20 ng/mL NONE DETECTED Ecato Profil e Reviewed date:04/22/2024 08:07:42 AM Interpretation: Performing Lab:[facility] (CLIA#: [id number]), [address] [place] [address], [place] [address], Director - Madai Richards Notes/Report: These tests were developed and their performance characteristics determined by [facility]. They have not been cleared or approved by the [place] Food and Drug Administration. Certifying Monkey Keeper: David Teague (Remote [id number]) Analyzed at [facility] (CLIA#: [id number]) - [address] [place] [address] - Neonatal Social Worker: Madai Spencer Oxycodone Ur CMP 2921 >=100 ng/mL PRN - PRESE NT: Test result is consistent and expected with prescribed drug. Ethyl Sulfate Ur CMP 253 >=200 ng/mL PRESENT : Test result is consistent with alcohol exposure within 72 hours of specimen collection. For additional information, please consult the Clinical Team at or email . BioDetect EXPECTED Test result is consistent with routinely analyzed human urine. 6MAM Ur Ql Cfm <10 >=10 ng/mL NONE DETECTED Amphetamines Ur Ql Cfm <100 >=100 ng/mL NONE DETECTED Benzodiaz Ur Ql Cfm <50 >=50 ng/mL NONE DET ECTED Buprenorphine Ur Ql Cfm <1 >=1 ng/mL NONE DETECTED BZE Ur Ql Cfm <50 >=50 ng/mL NONE DETECTED Fentanyl+Norfentanyl Ur Ql Cfm <5 >=5 ng/mL NONE DETECTED Gabapentin Ur Ql <5 >=5 mcg/mL NONE DETECT ED Carisoprodol+Meprob Ur Ql Scn <200 >=200 ng/mL NONE DETECTED Methadone Ur Ql Cfm <200 >=200 ng/mL NONE DET ECTED Meperidine Ur Ql Cfm <100 >=100 ng/mL NONE DE TECTED Opiates Ur Ql Cfm >=100 >=100 ng/mL POSITIVE Oxymorphone Ur Cfm-mCnc 436 >=100 ng/mL POSI TIVE Noroxycodone Ur Cfm-mCnc 2043 >=100 ng/mL POS ITIVE Oxycodone Ur Cfm-mCnc 442 >=100 ng/mL POSITI VE Pregabalin(Lyrica) Ur Ql Cfm <5 >=5 mcg/mL NONE DETECTED Tramadol Ur Ql Cfm <100 >=100 ng/mL NONE DETE CTED Creat Ur-mCnc 162.8 20 - 370 mg/dL NORMAL Creatinine and pH are performed for specimen validity and not diagnostic purposes. pH Ur 5.56 4.5 - 9.0 NORMAL Creatinine and pH are performed for specimen validity and not diagnostic purposes. Alcohol Metabolites Ur Ql Cfm >=200 >=200 ng/mL POSITIVE Ethyl sulfate Ur Cfm-mCnc 253 >=200 ng/mL PO SITIVE Synthetic Stimulants Ur Ql Cfm <1 >=1 ng/mL NONE DETECTED ROLL FINISHER Not Otherwise Specified Ur Ql Cfm <1 >=1 ng/mL NONE DETECTED Synthetic Cannabinoids Ur Ql Cfm <1 >=1 ng/m L NONE DETECTED Hallucinogens/Dissociatives Ur Ql Cfm <1 >=1 ng/mL NONE DETECTED Rn Utilization Management Um Benzodiazepines Ur Ql Cfm <1 >=1 ng/mL NONE DETECTED Rn Utilization Management Um Opioids Ur Ql Cfm <1 >=1 ng/mL N ONE DETECTED THC Ur Ql Scn <20 >=20 ng/mL NONE DETECTED Ethanol Ur Ql Scn <20 >=20 mg/dL NONE DETEC JOEY Reason For Referral No Information Medications Medication SIG (Take, Route, Frequency, Duration) Notes Start Date End Date Status Tamsulosin HCl 0.4 MG TAKE 1 CAPSULE BY MOUTH TWICE DAILY DIRECTED Oral; Duration: 90 Days Active Diclofenac Sodium 1 % APPLY 4GM TO THE AFFECTED AREA EVERY 4 HOURS NEEDED External; Duration: 30 Days Active Dutasteride 0.5 MG Oral; Duration: 90 Days Active Naloxone HCl 4 MG/0.1ML as directed Nasally in an opioid emergency; Duration: 1 days 02/07/2025 Active oxyCODONE-Acetaminophe n 10-325 MG 1 tablet as needed Orally twice per day; Duration: 30 days DO NOT FILL UNTIL 02/21/25 02/07/2025 Active diazePAM 5 MG 1 tablet as needed Orally Once a day; Duration: 1 days 1-2 tablets 60minutes before procedure 01/19/2025 Active Mesalamine 1.2 GM TAKE 1 TABLET BY MOUTH TWICE DAILY Oral; Duration: 90 Days Active Problems Problem Type SNOMED Code ICD Code Onset Dates Problem Status W/U Status Risk Notes Problem Pain of right shoulder region (finding) (2581813238) Pain in right shoulder (M25.511) Active confirmed Problem High risk drug monitoring status (694277241) intermission coordinator (current) use of opiate analgesic (Z79.891) Active confirmed Problem Cervical spondylosis (431198849) Cervical spondylosis (M47.812) Active confirmed Problem Lumbar spondylosis (612755108) Lumbar spondylosis (M47.816) Active confirmed Problem Thoracic spondylosis (775109667) Thoracic spondylosis (M47.814) Active confirmed Problem Lumbar pain (275966413) Lumbar pain (M54.50) Active confirmed Problem Lumbar radiculopathy (675805795) Lumbar radiculopathy (M54.16) Active confirmed Problem Lumbar post-laminectomy syndrome (949221894) Lumbar postlaminectomy syndrome (M96.1) Active confirmed Problem Arthralgia of the pelvic region and thigh (542646721) Hip pain, right (M25.551) Active confirmed Problem Hypertension (94697380) Hypertension (I10) Active confirmed Problem History of total replacement of left hip joint (1614762275683925 ) Status post total hip replacement, 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 Problem History of left hip replacement (0936811015305573 ) History of left hip replacement (Z96.642) Active confirmed Problem Osteoarthritis (262354791) Osteoarthritis (M19.90) Active confirmed Problem Cervical pain (85196786) Cervical pain (M54.2) Active confirmed Vital Signs Heart Rate 50 /min 01/12/2025 Height-cm 185.42 cm 02/07/2025 Blood pressure diastolic 62 mm Hg 01/12/2025 Weight-kg 95.26 kg 02/07/2025 Height 6ft 1in in 02/07/2025 Blood pressure systolic 135 mm Hg 01/12/2025 Weight 210 lbs 02/07/2025 BMI 27.7 kg/m2 02/07/2025 Encounters Encounter Location Date Provider Diagnosis [facility] [address] [place] [address] 01/12/2025 Ines Marstall Pain in right shoulder M25.511 ; Lumbar pain M54.50 ; History of left hip replacement Z96.642 ; [facility] (current) use of opiate analgesic Z79.891 ; Lumbar spondylosis M47.816 ; Lumbar radiculopathy M54.16 ; Osteoarthritis M19.90 ; Hypertension I10 ; Hip pain, right M25.551 ; Thoracic spondylosis M47.814 ; Cervical pain M54.2 and Cervical spondylosis M47.812 [facility] [address] [place] [address] 02/07/2025 James Eliezer Pain in right should er M25.511 ; Lumbar pain M54.50 ; History of left hip replacement Z96.642 ; [facility] (current) use of opiate analgesic Z79.891 ; Lumbar spondylosis M47.816 ; Lumbar radiculopathy M54.16 ; Osteoarthritis M19.90 ; Hypertension I10 ; Hip pain, right M25.551 ; Thoracic spondylosis M47.814 ; Cervical pain M54.2 ; Cervical spondylosis M47.812 ; Lumbar postlaminectomy syndrome M96.1 ; Right hip pain M25.551 and Status post total hip replacement, left Z96.642 [facility] [address] [place] [address] 02/23/2024 Farida Mack Pain in right should er M25.511 [facility] [address] [place] [address] 03/23/2024 Farida Mack Lumbar pain M54.50 ; Pain in right shoulder M25.511 and [facility] use of drug Z79.899 [facility] [address] [place] [address] 04/18/2024 Ines Marstall Pain in right shoulder M25.511 ; Lumbar pain M54.50 ; History of left hip replacement Z96.642 and [facility] (current) use of opiate analgesic Z79.891 [facility] [address] [place] [address] 05/17/2024 James Eliezer Pain in right should er M25.511 ; Lumbar pain M54.50 ; Lumbar spondylosis M47.816 ; Status post total hip replacement, left Z96.642 ; History of left hip replacement Z96.642 ; intermission coordinator (current) use of opiate analgesic Z79.891 and Screening for substance abuse Z13.89 [facility] [address] [place] [address] 06/14/2024 James Eliezer Pain in right should er M25.511 ; Lumbar pain M54.50 ; History of left hip replacement Z96.642 ; [facility] (current) use of opiate analgesic Z79.891 ; Lumbar spondylosis M47.816 ; Status post total hip replacement, left Z96.642 ; Lumbar radiculopathy M54.16 ; Lumbar spine pain M54.50 ; Osteoarthritis M19.90 ; Hypertension I10 and Right shoulder pain M25.511 [facility] [address] [place] [address] 07/21/2024 Ines Marstall Lumbar pain M54.50 ; Lumbar spondylosis M47.816 ; Hip pain, right M25.551 ; Osteoarthritis M19.90 and [facility] (current) use of opiate analgesic Z79.891 [facility] [address] [place] [address] 08/18/2024 Ines Marstall Pain in right shoulder M25.511 ; Hip pain, right M25.551 ; Lumbar pain M54.50 ; History of left hip replacement Z96.642 ; [facility] (current) use of opiate analgesic Z79.891 ; Lumbar spondylosis M47.816 ; Status post total hip replacement, left Z96.642 ; Lumbar radiculopathy M54.16 ; Osteoarthritis M19.90 and Hypertension I10 [facility] [address] [place] [phone] 09/15/2024 Ines Marstall Pain in right shoulder M25.511 ; Lumbar pain M54.50 ; History of left hip replacement Z96.642 ; [facility] (current) use of opiate analgesic Z79.891 ; Lumbar spondylosis M47.816 ; Lumbar radiculopathy M54.16 ; Osteoarthritis M19.90 ; Hypertension I10 and Hip pain, right M25.551 [facility] [address] [place] [address] 10/13/2024 Ines Marstall Pain in right shoulder M25.511 ; Lumbar pain M54.50 ; History of left hip replacement Z96.642 ; intermission coordinator (current) use of opiate analgesic Z79.891 ; Lumbar spondylosis M47.816 ; Lumbar radiculopathy M54.16 ; Osteoarthritis M19.90 ; Hypertension I10 and Hip pain, right M25.551 [facility] [address] [place] [address] [address] [place] [address] 11/10/2024 Farida Mack Lumbar pain M54.50 ; History of left hip replacement Z96.642 ; Lumbar spondylosis M47.816 ; Lumbar radiculopathy M54.16 ; Osteoarthritis M19.90 ; Hypertension I10 and intermission coordinator use of drug Z79.899 [facility] [address] [place] [address] [address] [place] [address] 11/10/2024 James Martins Lumbar spondylosis M47.816 ; Thoracic spondylosis M47.814 ; Cervical spondylosis M47.812 and Right hip pain M25.551 [facility] [address] [place] [address] [address] [place] [address] 12/15/2024 Ines Mcclain Lumbar pain M54.50 ; Lumbar spondylosis M47.816 ; Lumbar radiculopathy M54.16 ; Pain in right shoulder M25.511 ; History of left hip replacement Z96.642 ; [facility] (current) use of opiate analgesic Z79.891 ; Osteoarthritis M19.90 ; Hypertension I10 ; Hip pain, right M25.551 ; Thoracic spondylosis M47.814 ; Cervical pain M54.2 and Cervical spondylosis M47.812 [facility] [address] [place] [address] [address] [place] [address] 02/23/2024 Sherri Martins [facility] [address] [place] [address] [address] [place] [address] 03/23/2024 Jayden Watts [facility] [address] [place] [address] [address] [place] [address] 04/18/2024 Sherri Martins [facility] [address] [place] [address] [address] [place] [address] 06/14/2024 James Martins [facility] [address] [place] [phone] 07/21/2024 James Eliezer [facility] [address] [place] [address] 08/18/2024 James Eliezer [facility] [address] [place] [address] 09/15/2024 Jaems Eliezer [facility] [address] [place] [address] 10/13/2024 James Eliezer [facility] [address] [place] [address] 11/10/2024 Sherri Eliezer [facility] [address] [place] [address] 12/15/2024 James Eliezer [facility] [address] [place] [address] 01/12/2025 James Eliezer [facility] [address] [place] [address] 01/19/2025 James Eliezer [facility] [address] [place] [address] 02/07/2025 James Eliezer Assessments Encounter Date Diagnosis (ICD Code) Assessment Notes Treatment Notes Treatment Clinical Notes Section Notes 02/23/2024 Pain in right shoulder (ICD-10 - M25.511) Refill for controlled substance sent to supervising physician to be filled Educated patient it takes approx 2 days to feel full effect of steroid injection. Discussed if no improvement in pain, consider ordering MRI of right shoulder. Continue home stretching and at home exercise program as toleratedFollow-u p in one month for med check, sooner if needed 03/23/2024 Pain in right shoulder (ICD-10 - M25.511) 03/23/2024 Lumbar pain (ICD-10 - M54.50) Refill for controlled substance sent to supervising physician to be filled Continue home stretching and at home exercise program as tolerated Follow-up in one month for med check, sooner if needed 04/18/2024 Pain in right shoulder (ICD-10 - M25.511) opioid rx sent to supervising physician for renewal 05/17/2024 Lumbar pain (ICD-10 - M54.50) 05/17/2024 Pain in right shoulder (ICD-10 - M25.511) 06/14/2024 Pain in right shoulder (ICD-10 - M25.511) 07/21/2024 Lumbar spondylosis (ICD-10 - M47.816) 07/21/2024 Lumbar pain (ICD-10 - M54.50) Prescription for controlled substance sent to supervising physician for renewal 08/18/2024 Pain in right shoulder (ICD-10 - M25.511) 08/18/2024 Hip pain, right (ICD-10 - M25.551) 09/15/2024 Pain in right shoulder (ICD-10 - M25.511) 10/13/2024 Pain in right shoulder (ICD-10 - M25.511) 11/10/2024 Lumbar pain (ICD-10 - M54.50) Refill for controlled substance sent to supervising physician to be filled Will schedule for right injection with next med check in case needed Continue home stretching and at home exercise program as tolerated Follow-up in one month for med check, sooner if needed 11/10/2024 History of left hip replacement (ICD-10 - Z96.642) 11/10/2024 Lumbar spondylosis (ICD-10 - M47.816) 12/15/2024 Lumbar spondylosis (ICD-10 - M47.816) Prescription for controlled substance sent to supervising physician for renewal 12/15/2024 Lumbar pain (ICD-10 - M54.50) 01/12/2025 Pain in right shoulder (ICD-10 - M25.511) 02/07/2025 Pain in right shoulder (ICD-10 - M25.511) 02/07/2025 Lumbar pain (ICD-10 - M54.50) 12/15/2024 Lumbar radiculopathy (ICD-10 - M54.16) 01/12/2025 Lumbar pain (ICD-10 - M54.50) 11/10/2024 Thoracic spondylosis (ICD-10 - M47.814) 11/10/2024 Lumbar spondylosis (ICD-10 - M47.816) 10/13/2024 Lumbar pain (ICD-10 - M54.50) 09/15/2024 Lumbar pain (ICD-10 - M54.50) Prescription for controlled substance sent to supervising physician for renewal 08/18/2024 Lumbar pain (ICD-10 - M54.50) Prescription for controlled substance sent to supervising physician for renewal 07/21/2024 Hip pain, right (ICD-10 - M25.551) 06/14/2024 Lumbar pain (ICD-10 - M54.50) 05/17/2024 Lumbar spondylosis (ICD-10 - M47.816) 04/18/2024 Lumbar pain (ICD-10 - M54.50) 03/23/2024 [facility] use of drug (ICD-10 - Z79.899) 04/18/2024 History of left hip replacement (ICD-10 - Z96.642) 05/17/2024 Status post total hip replacement, left (ICD-10 - Z96.642) 06/14/2024 History of left hip replacement (ICD-10 - Z96.642) 07/21/2024 Osteoarthritis (ICD-10 - M19.90) 08/18/2024 History of left hip replacement (ICD-10 - Z96.642) 09/15/2024 History of left hip replacement (ICD-10 - Z96.642) 10/13/2024 History of left hip replacement (ICD-10 - Z96.642) 11/10/2024 Lumbar radiculopathy (ICD-10 - M54.16) 12/15/2024 Pain in right shoulder (ICD-10 - M25.511) 11/10/2024 Cervical spondylosis (ICD-10 - M47.812) 01/12/2025 History of left hip replacement (ICD-10 - Z96.642) 02/07/2025 History of left hip replacement (ICD-10 - Z96.642) 02/07/2025 [facility] (current) use of opiate analgesic (ICD-10 - Z79.891) 01/12/2025 intermission coordinator (current) use of opiate analgesic (ICD-10 - Z79.891) 12/15/2024 History of left hip replacement (ICD-10 - Z96.642) 11/10/2024 Osteoarthritis (ICD-10 - M19.90) 11/10/2024 Right hip pain (ICD-10 - M25.551) 10/13/2024 intermission coordinator (current) use of opiate analgesic (ICD-10 - Z79.891) 09/15/2024 intermission coordinator (current) use of opiate analgesic (ICD-10 - Z79.891) 08/18/2024 intermission coordinator (current) use of opiate analgesic (ICD-10 - Z79.891) 07/21/2024 intermission coordinator (current) use of opiate analgesic (ICD-10 - Z79.891) 05/17/2024 History of left hip replacement (ICD-10 - Z96.642) 06/14/2024 [facility] (current) use of opiate analgesic (ICD-10 - Z79.891) 04/18/2024 [facility] (current) use of opiate analgesic (ICD-10 - Z79.891) 06/14/2024 Lumbar spondylosis (ICD-10 - M47.816) 05/17/2024 intermission coordinator (current) use of opiate analgesic (ICD-10 - Z79.891) 08/18/2024 Lumbar spondylosis (ICD-10 - M47.816) 09/15/2024 Lumbar spondylosis (ICD-10 - M47.816) 10/13/2024 Lumbar spondylosis (ICD-10 - M47.816) 12/15/2024 intermission coordinator (current) use of opiate analgesic (ICD-10 - Z79.891) 11/10/2024 Hypertension (ICD-10 - I10) 01/12/2025 Lumbar spondylosis (ICD-10 - M47.816) 02/07/2025 Lumbar spondylosis (ICD-10 - M47.816) 02/07/2025 Lumbar radiculopathy (ICD-10 - M54.16) 01/12/2025 Lumbar radiculopathy (ICD-10 - M54.16) 12/15/2024 Osteoarthritis (ICD-10 - M19.90) 11/10/2024 [facility] use of drug (ICD-10 - Z79.899) 10/13/2024 Lumbar radiculopathy (ICD-10 - M54.16) 09/15/2024 Lumbar radiculopathy (ICD-10 - M54.16) 08/18/2024 Status post total hip replacement, left (ICD-10 - Z96.642) 06/14/2024 Status post total hip replacement, left (ICD-10 - Z96.642) 05/17/2024 Screening for substance abuse (ICD-10 - Z13.89) 06/14/2024 Lumbar radiculopathy (ICD-10 - M54.16) 09/15/2024 Osteoarthritis (ICD-10 - M19.90) 08/18/2024 Lumbar radiculopathy (ICD-10 - M54.16) 10/13/2024 Osteoarthritis (ICD-10 - M19.90) 01/12/2025 Osteoarthritis (ICD-10 - M19.90) 12/15/2024 Hypertension (ICD-10 - I10) 02/07/2025 Osteoarthritis (ICD-10 - M19.90) 02/07/2025 Hypertension (ICD-10 - I10) 01/12/2025 Hypertension (ICD-10 - I10) 12/15/2024 Hip pain, right (ICD-10 - M25.551) 10/13/2024 Hypertension (ICD-10 - I10) 08/18/2024 Osteoarthritis (ICD-10 - M19.90) 09/15/2024 Hypertension (ICD-10 - I10) 06/14/2024 Lumbar spine pain (ICD-10 - M54.50) 06/14/2024 Osteoarthritis (ICD-10 - M19.90) 09/15/2024 Hip pain, right (ICD-10 - M25.551) 08/18/2024 Hypertension (ICD-10 - I10) 10/13/2024 Hip pain, right (ICD-10 - M25.551) 12/15/2024 Thoracic spondylosis (ICD-10 - M47.814) 01/12/2025 Hip pain, right (ICD-10 - M25.551) 02/07/2025 Hip pain, right (ICD-10 - M25.551) 02/07/2025 Thoracic spondylosis (ICD-10 - M47.814) 01/12/2025 Thoracic spondylosis (ICD-10 - M47.814) 12/15/2024 Cervical pain (ICD-10 - M54.2) 06/14/2024 Hypertension (ICD-10 - I10) 06/14/2024 Right shoulder pain (ICD-10 - M25.511) 12/15/2024 Cervical spondylosis (ICD-10 - M47.812) 01/12/2025 Cervical pain (ICD-10 - M54.2) 02/07/2025 Cervical pain (ICD-10 - M54.2) 02/07/2025 Cervical spondylosis (ICD-10 - M47.812) 01/12/2025 Cervical spondylosis (ICD-10 - M47.812) 02/07/2025 Lumbar postlaminectomy syndrome (ICD-10 - M96.1) 02/07/2025 Right hip pain (ICD-10 - M25.551) 02/07/2025 Status post total hip replacement, left (ICD-10 - Z96.642) 01/12/2025 Other High Blood Pressure: Care Instructions material was published 02/07/2025 Other The plan of car e is to consider a low-profile brace. Patient's pain medication is refilled. Patient is using on average 1/day of oxycodone 10/325. Patient had nasal Narcan called in as well. Risk-benefit alternatives were discussed with patient. 02/23/2024 Other High Blood Pressure: Care Instructions material was published 03/23/2024 Other High Blood Pressure: Care Instructions material was published 04/18/2024 Other High Blood Pressure: Care Instructions material was published 05/17/2024 Other High Blood Pressure: Care Instructions material was published Plan of care continue patient on his medication. He is currently using diclofenac gel. Risk benefits and alternatives of the medications were discussed. 06/14/2024 Other Body Mass Index: Care Instructions material was published, High Blood Pressure: Care Instructions material was published, Learning About How to Have a Healthy Back material was published Plan of care is refill oxycodone 10/325 twice a day. Patient will follow-up in 1 month. 07/21/2024 Other Body Mass Index : Care Instructions material was published, High Blood Pressure: Care Instructions material was published 08/18/2024 Other Body Mass Index : Care Instructions material was published, High Blood Pressure: Care Instructions material was published 09/15/2024 Other Body Mass Index : Care Instructions material was published, High Blood Pressure: Care Instructions material was published, Learning About How to Have a Healthy Back material was published 10/13/2024 Other High Blood Pressure: Care Instructions material was published 11/10/2024 Other Patient is an 84-year-old male who is present today for x-rays 4 view lumbar 2 view thoracic 4 view cervical and right hip x-rays all and weightbearing. Lumbar x-rays show a scoliotic curvature with a concavity on the left centered at L3. There is a lateral listhesis of L3 in relationship to L4. There is a left total hip prosthesis in place. There are degenerative changes advanced in the right hip. Patient lateral view shows a straightening of the lumbar lordosis. There are degenerative changes with disc base height loss and advanced endplate changes at L3-4 L4-5 and L5-S1. Patient's forward flexion is primarily at the TL junction. Patient barely extends with no segmental dysfunction. There is some calcification of the abdominal aorta from approximately L1 down to about L4. Thoracic spine shows a slight scoliotic curvature the concavity on the right side centered at approximately T5-T7. There is an increase in lung markings. Patient has straightening of the normal thoracic kyphosis. There is a wedge deformity seen at approximately the 7th or 8th thoracic vertebrae. Patient has a right cervical tilt and straightening of the normal cervical lordosis. Patient has degenerative disc disease with disc space height loss endplate changes most marked at C6-7 greater than C5-6 greater than C4-5. Forward flexion is reduced about 50% and there is a forward offset of C3 over C4. No movement below C4. Patient is able to extend but maintains a slight forward offset of C3 over C4. No movement again below C4. Patient extends slightly at C2-C3. Right hip shows advanced degenerative changes of the hip joint with spurring. No tumor metastases or fractures are seen. 12/15/2024 Other High Blood Pressure: Care Instructions material was published Plan Of Treatment Pending Test Test Name Order Date X ray : Hip, right 11/10/2024 X ray : Thoracic spine 2 views X ray : Spines, cervical 4 views 025 MR Lumbar WO 12/15/2024 MR Lumbar WO 01/12/2025 X ray : Spines, lumbar 4 views EtS (Alcohol Metabolite) - Urine 025 QMP Plus D/L - Urine 10/13/2024 Synthetic Stimulants 10/13/2024 Rn Utilization Management Um Benzodiazepines 10/13/2024 Synthetic Cannabinoids 10/13/2024 Rn Utilization Management Um Opioids 10/13/2024 Hallucinogens/Dissociatives 10/13/2024 ROLL FINISHER Other 10/13/2024 Marijuana - Urine 10/13/2024 PainComp Medication Compliance - Urine 0 10/13/2024 Aegis Required Information 10/13/2024 Next Appt Details Provider Name:Ines aguilar, 03/14/2025 10:00:00 AM, [id number] [place] [address], [facility] [address], [place], [address], Insurance Providers Payer Name Payer Address Payer Phone Subscriber Number Group Number Insured Name Patient Relationship to Insured Coverage Start Date Coverage End Date [employer] medicare [address] [address] [place] [address] [phone] [id number] Lucho Sweet Self - patient is the insured Medications Administered Medication Instructions Date of Administration Dosage Notes Hip Inj Intra-articular 08/18/2024 R bursa injection Shoulder Injection 02/23/2024 Medical (General) History Medical History History ICD Code osteoarthritis leg length discrepancy short left 10mm Surgical History Surgery Date(Month/Year) L THR Dr. Proctor 04/24 Hospitalization History Reason Date(Month/Year) no hospitalization since last visit
--- OUTSIDE RECORDS SUMMARY | 2025-02-12 12:59 | XMS_ITS | Encounter Summary ---
Author Organization 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 us Historical Provider Final Res ult documented in this encounter Visit Diagnoses Not on filedocumented in this encounter Care Teams Forensic Pathologist Relationship Specialty Start Date End Date Vivek Lee MD PCP - General 03/17/17 05/06/22 documented as of this encounter
--- OUTSIDE RECORDS SUMMARY | 2025-02-12 12:59 | XMS_ITS | Clinical Summary ---
Author Organization [facility] Address [address] [address] Care Team Providers Care Police Manager Name Role Phone Vivek Lee MD Primary Care Provider +1- [phone] Source Comments [facility],non-owned Affiliates and Associated Physician Practices is amultiple site organization consisting of ambulatory clinics and hospital sitesin [place], [place], [place]. This disclosure is being madepursuant to the Care Everywhere program and may not contain all information available regarding this patient. Last updated 18.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 Gender Identity Not on file Sexual Orientation Not on file Last Filed Vital Signs Vital Sign Reading Time Taken Comments Blood Pressure 128/74 10/06/2012 8:45 AM CDT Pulse - - Temperature 36.8 C (98.2 F) 10/06/2012 8:45 AM CDT Respiratory Rate - - Oxygen Saturation - - Inhaled Oxygen Concentration - - Weight 92.5 kg (204 lb) 10/06/2012 8:45 AM CDT Height 188 cm (6' 2) 10/06/2012 8:45 AM CDT Body Mass Index 26.19 10/06/2012 8:45 AM CDT Plan of Treatment Health Maintenance Due Date Last Done Comments DTAP/TDAP/TD VACCINES (1 - Tdap) 1959 PNEUMOCOCCAL VACCINE 50+ (1 of 1 - PCV) 01/05/1988 ZOSTER VACCINE (1 of 2) 01/05/1988 Respiratory Syncytial Virus (RSV) Vaccine Pt: or over 60 yrs (1 - 1-dose 75+ series) 2013 COVID-19 VACCINE (2023-2 5 season) 2024 DEPRESSION SCREENING 07/06/2024 INFLUENZA VACCINE (#1) 2025 HEPATITIS B VACCINE Aged Out No longe r eligible based on patient's age to complete this topic HIB VACCINE Aged Out No longer eligi ble based on patient's age to complete this topic HPV VACCINE Aged Out No longer eligi ble based on patient's age to complete this topic MENINGOCOCCAL (Group B) VACC INE SHARED DECISION-MAKING Aged Out No longer eligibl e based on patient's age to complete this topic MENINGOCOCCAL GROUPS A/C/Y/W VACCINE Aged Out No longer eligible b ased on patient's age to complete this topic Care Teams Police Manager Relationship Specialty Start Date End Date Vivek Lee MD [address] [place] [id number] PCP - General 06/25/12
--- OUTSIDE RECORDS SUMMARY | 2025-02-12 12:59 | XMS_ITS | Encounter Summary ---
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 Historical Provider Final Res ult * SCAN - LABS (06/11/2017 12:00 AM WAREHOUSE ADMINISTRATOR) Narrative 06/11/2017 12:00 AM WAREHOUSE ADMINISTRATOR Ordered by an unspecified provider. Historical Provider Final Res ult documented in this encounter Visit Diagnoses Not on filedocumented in this encounter Care Teams Command And Control Systems Integrator Relationship Specialty Start Date End Date Vivek Lee MD PCP - General 03/17/17 05/06/22 documented as of this encounter
--- OUTSIDE RECORDS SUMMARY | 2025-02-12 12:59 | XMS_ITS | Encounter Summary ---
Author Organization [facility] Facility Care Team Providers Care Online Publisher Name Role Phone Vivek Lee MD Primary Care Provider +1- [phone] Unknown, Notinfile Primary Care Provider Unavail able Vivek Lee MD Primary Care Provider +- [phone] Encounter Details Date Type Department Care Team (Latest Contact Info) Description 11/12/2016 Orders Only [facility] CLINCONV ProviderKody MD [address] [place] [address] Social History Tobacco Use Types Packs/Day Years Used Date Smoking Tobacco: Never Sex and Gender Information Value Date Recorded Sex Assigned at Not on file Legal 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 Historical Provider Final Res ult documented in this encounter Visit Diagnoses Not on filedocumented in this encounter Care Teams Online Publisher Relationship Specialty Start Date End Date Vivek Lee MD PCP - General 02/02/17 03/05/17 Unknown, Notinfile PCP - General 03/06/17 03/16/17 Vivek Lee MD PCP - General 03/17/17 05/06/22 documented as of this encounter
--- OUTSIDE RECORDS SUMMARY | 2025-02-12 12:59 | XMS_ITS | Encounter Summary ---
Author Organization [facility] Facility Care Team Providers Care Tipple Supervisor Name Role Phone Vivek Lee MD Primary Care Provider +1- [phone] Unknown, Notinfile Primary Care Provider Unavail able Vivek Lee MD Primary Care Provider +- [phone] Encounter Details Date Type Department Care Team (Latest Contact Info) Description 11/22/2015 Orders Only [facility] CLINCONV ProviderKody MD [address] [place] [address] Social History Tobacco Use Types Packs/Day Years Used Date Smoking Tobacco: Never Sex and Gender Information Value Date Recorded Sex Assigned at Not on file Legal Sex Male 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 Historical Provider Final Res ult documented in this encounter Visit Diagnoses Not on filedocumented in this encounter Care Teams Tipple Supervisor Relationship Specialty Start Date End Date Vivek Lee MD PCP - General 02/02/17 03/05/17 Unknown, Notinfile PCP - General 03/06/17 03/16/17 Vivek Lee MD PCP - General 03/17/17 05/06/22 documented as of this encounter
--- OUTSIDE RECORDS SUMMARY | 2025-02-12 12:59 | XMS_ITS | Encounter Summary ---
Author Organization [facility] Address 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
--- OUTSIDE RECORDS SUMMARY | 2025-02-12 13:00 | XMS_ITS | Patient Health Record ---
Author Organization [facility] Address [address] [facility] Kamaljit. [address] [place] [address] Care Team Providers Care Specialty Department Supervisor Name Role Phone Jesus GARRIDO, Vivek Primary Care Provider Unavailab le Reason For Referral No Information Plan Of Treatment No Information Insurance Providers Payer Name Payer Address Payer Phone Subscriber Number Group Number Insured Name Patient Relationship to Insured Coverage Start Date Coverage End Date Medicare E2 [address] [address] [place] [address] [phone] [id number] Lucho Sweet Self - patient is the insured [facility] [employer] [address] [address] [place] [address] [id number] Plan G Lucho Sweet Self - patient is the insured
--- OUTSIDE RECORDS SUMMARY | 2025-02-12 13:00 | XMS_ITS ---
Author Organization [facility] Address [address] [place] [address] Care Team Providers Care Brick Setter Name Role Phone Eliezer Sherri Unavailable [phone] Ines Mcclain PA-C Unavailable [phone] Allergies No Known Allergies REASON FOR VISIT meds Medications Medication SIG (Take, Route, Frequency, Duration) Notes Start Date End Date Status oxyCODONE-Acetaminophe n 10-325 MG 1 tablet as needed Orally twice per day; Duration: 30 days DO NOT FILL UNTIL 12/23/24 12/15/2024 Active Diclofenac Sodium 1 % APPLY 4GM TO THE AFFECTED AREA EVERY 4 HOURS NEEDED External; Duration: 30 Days Active Mesalamine 1.2 GM TAKE 1 TABLET BY MOUTH TWICE DAILY Oral; Duration: 90 Days Active Dutasteride 0.5 MG Oral; Duration: 90 Days Active Tamsulosin HCl 0.4 MG TAKE 1 CAPSULE BY MOUTH TWICE DAILY DIRECTED Oral; Duration: 90 Days Active Vital Signs Blood pressure systolic 135 mm Hg 01/13/20 25 Blood pressure diastolic 62 mm Hg 025 Heart Rate 50 /min 01/12/2025 Height 6ft 1in in 01/12/2025 Weight 210 lbs 01/12/2025 BMI 27.7 kg/m2 01/12/2025 Height-cm 185.42 cm 01/12/2025 Weight-kg 95.26 kg 01/12/2025 Encounters Encounter Location Date Provider Diagnosis [facility] [address] [place] [address] 01/12/2025 Ines Marstall Pain in right shoulder M25.511 ; Lumbar pain M54.50 ; History of left hip replacement Z96.642 ; terminal clerk (current) use of opiate analgesic Z79.891 ; Lumbar spondylosis M47.816 ; Lumbar radiculopathy M54.16 ; Osteoarthritis M19.90 ; Hypertension I10 ; Hip pain, right M25.551 ; Thoracic spondylosis M47.814 ; Cervical pain M54.2 and Cervical spondylosis M47.812 Assessments Encounter Date Diagnosis (ICD Code) Assessment Notes Treatment Notes Treatment Clinical Notes Section Notes 01/12/2025 Pain in right shoulder (ICD-10 - M25.511) 01/12/2025 Lumbar pain (ICD-10 - M54.50) 01/12/2025 History of left hip replacement (ICD-10 - Z96.642) 01/12/2025 FPC (current) use of opiate analgesic (ICD-10 - Z79.891) 01/12/2025 Lumbar spondylosis (ICD-10 - M47.816) 01/12/2025 Lumbar radiculopathy (ICD-10 - M54.16) 01/12/2025 Osteoarthritis (ICD-10 - M19.90) 01/12/2025 Hypertension (ICD-10 - I10) 01/12/2025 Hip pain, right (ICD-10 - M25.551) 01/12/2025 Thoracic spondylosis (ICD-10 - M47.814) 01/12/2025 Cervical pain (ICD-10 - M54.2) 01/12/2025 Cervical spondylosis (ICD-10 - M47.812) 01/12/2025 Other High Blood Pressure: Care Instructions material was published Plan Of Treatment Treatment Notes Assessment Notes Other High Blood Pressure: Care Instructions material was published Pending Test Test Name Order Date MR Lumbar WO 01/12/2025 Next Appt Details Provider Name:Ines aguilar, 03/14/2025 10:00:00 AM, [id number] [place] [address], [address], [place], [address], Progress Notes * Lucho GALLO DDOB:08/1939 (85 yo M)Acc No.[id number]:01/12/2025 Progress Notes Patient: Lucho FALK Appointment Provider: TAMMIE Garcia :1940 A ge:85 Y S ex:Male Date:01/12/2025 Address:[address] [place] [address] [address]orio Zaldivar [facility], [id number] Subjective: * Chief Complaints: * 1 . Meds. * HPI: * Established Patient: Established Patient Questionnaire: 1 . Are you currently taking a Blood Thinner Medication? N o 2 . Do you have an allergy to I.V. Contrast or Shellfish? N o 3 . List any changes to medical history. (eg; Falls, Test, Scans, Blood Work, and Hospitalizations) B lood Work 6 . What is your Pain Level today? (1-10, Scroll and select one) 7 7 . Where is your pain located? M id Back,Low Back,Right Leg 8 . After your last visit, what [...] blood drawn? (Please enter your best estimate) 1 6. When was your last Mammogram? (Please put N/A if you are male, for Females please put the best Estimate or Never.) N /A 1 7. When was your last Colonoscopy? (Please put the best Estimate or Never.) 2 017 1 8. Do you need any refills on your medications today? Y es 1 9. Any changes to your medications or allergies since your last visit? N o 2 0. Are you Diabetic? N o 2 1. Do you suffer from Constipation? N o * ROS: G eneral/Constitutional: Denies Change in appetite, Chills, Fatigue, Fever or Lightheadedness. ENT: Denies Tinnitus or Dysphagia. Ophthalmologic: Denies Blurred vision or change in vision. Neurological: denies gait abnormality, balance difficulty, dizziness, or loss of strength Psychological: denies depressed mood or change in mood Skin: denies skin rash . * Medical History: O steoarthritis, Leg length discrepancy short left 10mm. * Surgical History: L THR Dr. Proctor 04/24. * Hospitalization/Major Diagno stic Procedure: n o hospitalization since last visit . * Family History: F ather: , Sepsis. [...] have you been concerned that people will pit manager you for taking pain medication? 0 - [...] again in a few minutes: Evaristo Holt, [address] [place] [address], [place]. Max 4 attempts R ead to the [...] you to remember? First Name = Evaristo Rodriguez orrect 6 . What was the name and address I asked you to remember? Last Name = Jonathon Rodriguez orrect 6 . What was the name and address I asked you to remember? Street Number = [address] orrect [address] . What was the name and address I asked you to remember? Street Name = [facility] Michael orrect 6 . What was the name and address I asked you to remember? City = [facility] orrect T otal Score (out of 9) [...] Notes to Pharmacist: DO NOT FILL UNTIL 12/23/24, Medication List reviewed and reconciled with the patient * Allergies: N .K.D.A. Objective: * Vitals: H t: 6ft 1in, Wt: 210 lbs, BP: 135/62 mm Hg, Pain scale: 7 1-10, HR: 50 /min, BMI: 27.7 Index, Ht-cm: 185.42 cm, Wt-k.26 kg, Body Surface Area: 2.21. Assessment: * Assessment: 1. P ain in [...] 1 2. C ervical spondylosis - M47.812 Plan: * Treatment: 2.?Lumbar spondylosis?Imaging: MR Lumbar WO* 3.?Lumbar radiculopathy?Imaging: MR Lumbar WO* 4.?Others? Notes: High Blood Pressure: Care Instructions material was published?? * Billing Information: * Visit Code: * Procedure Codes: * Electronic signature of Joelle TAMMIE Mahoney PA-C on 02/12/2025 at 12:59 PM CDT Sign off status: Pending * Appointment Provider: TAMMIE Garcia Date: 0 01/12/2025 Generated for Printing/Fa[facility] SPHERE/eTransmitting on: 0 02/12/2025 12:59 PM CDT History and Physical Notes * HPI (History of Present Illness) Category Sub-Category Detail Notes Category Not es *Established Patient Established Patient Questionnaire: 1. Are you currently taking a Blood Thinner Medication?: No 2. Do you have an allergy to I.V. Contra st or Shellfish?: No 3. List any changes to medic al history. (eg; Falls, Test, Scans, Blood Work, and Hospitalizations): Blood Work 6. What is your Pain Level today? (1-10, Scroll and select one): 7 7. Where is your pain located?: Mid Back ,Low Back,Right Leg 8. After your last visit, wh at [...] blood drawn? (Please enter your best estimate): 12/26/24 16. When was your last Mammo gram? (Please put N/A if you are male, for Females please put the best Estimate or Never.): N/A 17. When was your last Colon oscopy? (Please put the best Estimate or Never.): 2017 18. Do you need any refills on your medi cations today?: Yes 19. Any changes to your medications or a llergies since your last visit?: No 20. Are you Diabetic?: No 21. Do you suffer from Constipation?: No
--- OUTSIDE RECORDS SUMMARY | 2025-02-12 13:00 | XMS_ITS | Encounter Summary ---
Author Organization [facility] Facility Care Team Providers Care Gauge Inspector Name Role Phone Vivek Lee MD Primary Care Provider +1- [phone] Unknown, Notinfile Primary Care Provider Unavail able Vivek Lee MD Primary Care Provider + [phone] Encounter Details Date Type Department Care Team (Latest Contact Info) Description 10/17/2015 Orders Only [facility] CLINCONV ProviderKody MD [address] [place] [address] Social History Tobacco Use Types Packs/Day Years Used Date Smoking Tobacco: Never Sex and Gender Information Value Date Recorded Sex Assigned at Not on file Legal Sex Male 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 Historical Provider Final Res ult documented in this encounter Visit Diagnoses Not on filedocumented in this encounter Care Teams Gauge Inspector Relationship Specialty Start Date End Date Vivek Lee MD PCP - General 02/02/17 03/05/17 Unknown, Notinfile PCP - General 03/06/17 03/16/17 Vivek Lee MD PCP - General 03/17/17 05/06/22 documented as of this encounter
--- OUTSIDE RECORDS SUMMARY | 2025-02-12 13:00 | XMS_ITS | Encounter Summary ---
Author Organization [facility] Facility Care Team Providers Care Chemist Assistant Name Role Phone Vivek Lee MD Primary Care Provider [phone] Unknown, Notinfile Primary Care Provider Unavail able Vivek Lee MD Primary Care Provider [phone] Encounter Details Date Type Department Care Team (Latest Contact Info) Description 10/11/2015 Orders Only [facility] ProviderKody MD [address] [place] [id number] Social History Tobacco Use Types Packs/Day Years Used Date Smoking Tobacco: Never Sex and Gender Information Value Date Recorded Sex Assigned at Not on file Legal Sex Male 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 Historical Provider Final Res ult * SCAN - LABS (10/11/2015 12:00 AM CDT) Narrative 10/11/2015 12:00 AM CDT Ordered by an unspecified provider. us Historical Provider Final Res ult documented in this encounter Visit Diagnoses Not on filedocumented in this encounter Care Teams Chemist Assistant Relationship Specialty Start Date End Date Vivek Lee MD PCP - General 02/02/17 03/05/17 Unknown, Notinfile PCP - General 03/06/17 03/16/17 Vivek Lee MD PCP - General 03/17/17 05/06/22 documented as of this encounter
--- OUTSIDE RECORDS SUMMARY | 2025-02-12 13:00 | XMS_ITS | Encounter Summary ---
Author Organization [facility] Facility Care Team Providers Care Health Assessment And Treatment Teacher Name Role Phone Vivek Lee MD Primary Care Provider Unknown, Notinfile Primary Care Provider Unavail able Vivek Lee MD Primary Care Provider [phone]- [phone] Encounter Details Date Type Department Care Team (Latest Contact Info) Description 09/19/2015 Orders Only [facility] CLINCON[facility] ProviderKody MD [address] [place] [id number] Social History Tobacco Use Types Packs/Day Years Used Date Smoking Tobacco: Never Sex and Gender Information Value Date Recorded Sex Assigned at Not on file Legal Sex Male 1:18 PM ADVANCE AGENT Gender Identity Not on file Sexual Orientation Not on file documented as of this encounter Plan of Treatment Not on file documented as of this encounter Procedures Procedure Name Priority Date/Time Associated Diagnosis Comments SCAN - LABS 09/25/2015 12:00 AM CDT documented in this encounter Results * SCAN - LABS (09/25/2015 12:00 AM CDT) Narrative 09/25/2015 12:00 AM CDT Ordered by an unspecified provider. Historical Provider Final Res ult documented in this encounter Visit Diagnoses Not on filedocumented in this encounter Care Teams Health Assessment And Treatment Teacher Relationship Specialty Start Date End Date Vivek Lee MD PCP - General 02/02/17 03/05/17 Unknown, Notinfile PCP - General 03/06/17 03/16/17 Vivek Lee MD PCP - General 03/17/17 05/06/22 documented as of this encounter
--- OUTSIDE RECORDS SUMMARY | 2025-02-12 13:00 | XMS_ITS | Clinical Summary ---
Author Organization [facility] Address [address] [place] [address] Phone Care Team Providers Care Nurse Case Manager Name Role Phone Vivek Lee MD Primary Care Provider [phone] Allergies No known active allergies Medications MESALAMINE (ASACOL PO) Take by mouth. Active dutasteride-tamsul osin (RHIANNA) 0.5-0.4 mg Extended Release 24 hour capsule Take 1 Capsule by mouth daily after breakfast. Active CALCIUM POLYCARBOPHIL (KONSYL FIBER ORAL) Take by mouth 2 times daily. Active multivitamin (DAILY-EDEN) tablet Take 1 Tablet by mouth daily. Active vitamin E 1,000 unit Capsule Take 1,000 Units by mouth daily. Active vitamin A 10,000 unit capsule Take 10,000 Units by mouth daily. Active cholecalciferol, Vitamin D3, (VITAMIN D3) 1,000 unit Capsule Take by mouth daily. Active omeprazole (PRILOSEC) 20 mg Capsule, Delayed Release(E.C.) Take 1 Capsule (20 mg) by mouth daily. 30 Capsule 1 6 Active dutasteride (AVODART) 0.5 mg Capsule Take 0.5 mg by mouth daily. 3 Active Anucort-HC 25 mg Suppository Insert 25 mg by rectum 2 times daily. 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 Hypercholesterolemia 08/05/2017 Overview (01/31/2023): Last Assessment & Plan: Dietary management/adequate control. EKG is little changed from 2014. Still sinus bradycardia. Normal axis and normal intervals. Q-wave in V1 was present in 2014. Q-wave in V2 but not be 3 and present EKG. This likely represent more lead placement difference than any true pathology particularly as he is asymptomatic. No history of heart disease. No symptoms. BPH (benign prostatic hyperplasia) 09/25/2015 Overview (01/31/2023): Last Assessment & Plan: Continue medication at same dosage. Well controlled. He does not see a urologist. PSA normal in August so does not need repeated. 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 Gender Identity Not on file Sexual Orientation Not on file Last Filed Vital Signs Vital Sign Reading Time Taken Comments Blood Pressure 138/62 01/28/2023 3:08 PM CDT Pulse 72 09/28/2015 10:53 AM CDT Temperature 36.4 C (97.6 F) 09/28/2015 10:53 AM CDT Respiratory Rate 16 09/28/2015 11:17 AM CDT Oxygen Saturation 100% 09/28/2015 11:17 AM CDT Inhaled Oxygen Concentration - - Weight 95.7 kg (211 lb) 01/28/2023 3:08 PM CDT Height 185.4 cm (6' 1) 01/28/2023 3:08 PM CDT Body Mass Index 27.84 01/28/2023 3:08 PM CDT Plan of Treatment Health Maintenance Due Date Last Done Comments ZOSTER VACCINE (1 of 2) 01/05/1988 RSV VACCINE (60+ or ) (1 - 1-dose 75+ series) 2013 PNEUMOCOCCAL VACCINE 50+ YEA RS (2 of 2 - PCV20 or PCV21) 04/26/2017 04/26/2016 COVID-19 Vaccine (3 - 2023-2 5 season) 2024 09/29/2020, 09/01/2020 INFLUENZA VACCINE (#1) 2025 , 02/14/2018, 04/26/2016, Additional history exists DTAP/TDAP/TD VACCINES (2 - T d or Tdap) 11/21/2025 11/22/2015 Insurance MEDICARE PART A AND B ASSURED LIFE Advance Directives For more information, please contact: [phone] * Full Code (Latest Code Status on File) Date Activated Date Inactivated Comments 09/28/2015 9:45 AM 09/28/2015 1:43 PM * Full Code Date Activated Date Inactivated Comments 05/17/2009 8:44 AM 05/18/2009 2:01 AM Care Teams Nurse Case Manager Relationship Specialty Start Date End Date Vivek Lee MD PCP - General Family Practice 08/31/15
[2025-02-12 13:03] VITALS: BP 156/61; PULSE 63; RESP 16; TEMP 36.3; O2SAT 98
--- NOTE | 2025-02-12 13:04 | ED.SKABFB ---
HPI - Skin/Abscess/Foreign Bdy General Chief complaint: Skin/Abscess/Foreign Body Stated complaint: Insect Bite Source: patient Mode of arrival: ambulatory Limitations: no limitations History of Present Illness HPI narrative: 85-year-old male presented for complaint itching, redness and swelling to the left hand following an insect sting 2 days ago. Patient says symptoms are worse today. He has not yet removed the wedding ring from the 4th digit. He did not see the insect bite him, he says he was wearing gloves, reached in to get food to feed barn cats, and felt pain to the hand. Has taken 1 Zyrtec and applied hydrocortisone cream.He denies numbness, tingling, weakness or open wounds. Related Data Home Medications ?Medication ?Instructions ?Recorded ?Confirmed ?Last Taken ?Type dutasteride 0.5 mg capsule 0.5 mg PO DAILY 05/15/22 09/21/23 Unknown History dutasteride 0.5 mg-tamsulosin ER 1 cap PO DAILY 05/15/22 09/21/23 Unknown History 0.4 mg capsule ext.release 24hr mphas (Tejal) mesalamine 1.2 gram tablet,delayed 2.4 g PO DAILY 05/15/22 09/21/23 Unknown History release (Lialda) tamsulosin 0.4 mg capsule (Flomax) 0.4 mg PO DAILY 05/15/22 09/21/23 Unknown History Allergies Allergy/AdvReac Type Severity Reaction Status Date / Time No Known Allergies Allergy Verified 02/12/25 12:58 Review of Systems Review of Systems: CONSTITUTIONAL: Denies body aches, fever, chills, or sweats. EYES: Denies visual changes, redness, or discharge. ENT: Denies rhinorrhea, congestion CARDIOVASCULAR: Denies chest pain, palpitations, or edema. RESPIRATORY: Denies cough or dyspnea. GASTROINTESTINAL: Denies abdominal pain, nausea, vomiting, or diarrhea. SKIN: Reports redness and swelling left hand MUSCULOSKELETAL: Denies back pain, joint pain, or myalgia. NEUROLOGIC: Denies headache, numbness, tingling, or weakness. FORMERLY [facility], [facility] Past Medical History Medical History Arthritis managed by pain management, Dr. Soliman BPH (benign prostatic hyperplasia) managed by Dr. Staton Colitis Diverticulosis Other fatigue Testicular hypofunction Surgical History Surgical History History of cataract surgery right eye 2015 History of hernia repair double 1968 History of left hip replacement April 2019 History of partial surgical removal of colon 2003 Family History Family History Father Heart disease Social History Social History Smoking status: Unknown if ever smoked Tobacco type: cigarettes Second hand tobacco smoke exposure: No Smoking end date: 07/06/1959 Alcohol intake: never Substance use: never Substance use type: does not use Living arrangements: with family Occupation/Education: retired Gender identity (if verbalized by the patient): Male Sexual Orientation (if Verbalized by the Patient): Straight or Heterosexual Comments At time of signature, I have reviewed and agree with nursing past medical, surgical, social and family history unless otherwise noted. Please see nursing chart for further information. There is no relevant family history pertinent to the presenting complaint Exam Narrative: GENERAL: Well-appearing EYES: conjunctivae clear, and EOMI. ENT: Mucous membranes moist. Oropharynx without edema, erythema or lesions. NECK: Supple. No lymphadenopathy CHEST: Clear to auscultation. HEART: Regular rate and rhythm. SKIN: Warm, dry. Mild swelling and erythema to the the left dorsal hand extending to distal forearm. CMS intact. No open wounds. NEURO: Alert and oriented x3. Course Course Emergency Course: Patient is aware of diagnosis, understands and agrees to treatment plan. Anticipatory guidance given. Patient agrees to follow-up as directed and is aware of reasons to seek care at the emergency department. Portions of this record may have been created with voice recognition software Level of Care: Express Care Visit Vital Signs Vital signs: Vital Signs Temperature 97.3 F L 02/12/25 13:03 Pulse Rate 63 02/12/25 13:03 Respiratory Rate 16 02/12/25 13:03 Blood Pressure 156/61 H 02/12/25 13:03 Pulse Oximetry 98 02/12/25 13:03 Oxygen Delivery Room Air 02/12/25 13:03 Temperature 97.3 F L 02/12/25 13:03 Pulse Rate 63 02/12/25 13:03 Respiratory Rate 16 02/12/25 13:03 Blood Pressure 156/61 H 02/12/25 13:03 Pulse Oximetry 98 02/12/25 13:03 Oxygen Delivery Room Air 02/12/25 13:03 Reviewed MDM - Skin/Abscess/Foreign Bdy MDM Narrative Medical decision making narrative: Discussed physical exam findings; most consistent with the expected reaction from an insect sting, reviewed prescriptions. Patient was able to remove the ring from left 4th digit. Advised supportive measures and signs/symptoms to go to the ER. Pt is appropriate for outpt treatment and f/u. Differential Diagnosis Differential diagnosis: Likely abscess of skin or subcutaneous tissue, viral exanthem, dermatophytosis, urticaria, herpes zoster, cellulitis, eczema, insect bites, impetigo and contact dermatitis Discharge Plan Discharge Clinical Impression: Accidental insect sting Patient Disposition: Home Condition: Stable Instructions: Antibiotic Form, Insect Bite or Sting (ED) Additional Instructions: Take steroids and Pepcid as directed. Take Zyrtec a package directions for itching Okay to apply anti itch cream as needed Keep the hand elevated Cool compresses to the sites of itching, avoid hot water. Avoid scratching to reduce the risk of infection Follow up with your primary care provider as needed in 1 week Go to the ER for worsening symptoms or concerns (lip, tongue, throat swelling/itching, trouble breathing etc) Patient Language: Turkish Prescriptions: New prednisone 20 mg tablet 40 mg PO DAILY 4 Days Qty: 8 0RF cephalexin 500 mg capsule 500 mg PO Q12H 5 Days Qty: 10 0RF No Action tamsulosin [Flomax] 0.4 mg capsule 0.4 mg PO DAILY dutasteride 0.5 mg capsule 0.5 mg PO DAILY dutasteride-tamsulosin [Tejal] 0.5-0.4 mg capsule, ER multiphase 24 hr 1 cap PO DAILY mesalamine [Lialda] 1.2 gram tablet,delayed release (DR/EC) 2.4 g PO DAILY Follow-up/Referrals: Gabi Conti PA-C [Primary Care Provider] -
== END 2025-02-12 13:19 | disposition home or self-care (01) ==
PROVIDERS: Emergency Provider Nurse Practitioner Family; PCP Physician Assistant Medical
DX: T63.481A Toxic effect of venom of other arthropod, accidental (unintentional), initial encounter (principal); N40.0 Benign prostatic hyperplasia without lower urinary tract symptoms; M19.90 Unspecified osteoarthritis, unspecified site; Z96.642 Presence of left artificial hip joint
CPT/HCPCS: 99213; G0463

== ENCOUNTER 2025-06-18 13:45 | Outpatient (CLI) | payer MEDICARE, SELFPAY ==
--- NOTE | ~2025-06-18 | MR_ITS ---
EXAM/PROCEDURE: MR shoulder LT wo con HISTORY: Left shoulder pain COMPARISON: None available. TECHNIQUE: Multiplanar left shoulder MRI without contrast. 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 No fracture subluxation or dislocation. No aggressive bone lesion seen. There is a large retracted tear in the supraspinatus tendon with the tendon retracted approximately 4.5 cm to the level of the medial humeral head, just lateral to the superior glenoid. See image 17 series 5. Mild fluid intense signal in the infraspinatus tendon with no full-thickness tear identified. Subscapularis and teres minor tendons appear intact. Mild atrophic appearing changes in the supraspinatus muscle. No definite labral tear on this nonarthrographic series. Mild hyperintense signal in the biceps long head tendon within the bicipital groove; the superior labral attachment is not seen but no discrete tear identified. The spinal glenoid recess and suprascapular notch regions appear normal. FINDINGS: 1. Large retracted supraspinatus tendon tear and probable partial-thickness tear at the infraspinatus tendon. Mild atrophic changes in the supraspinatus muscle suggest chronic injury or tear. 2. Advanced degenerative changes throughout the left shoulder. 3. Partial-thickness tear may be present involving the long head biceps tendon. Reviewed, dictated and finalized at location A. NDERING MACHINE OPERATOR
== END 2025-06-18 13:46 | disposition home or self-care (01) ==
PROVIDERS: PCP Physician Assistant Medical
DX: S46.812A Strain of other muscles, fascia and tendons at shoulder and upper arm level, left arm, initial encounter (principal); X58.XXXA Exposure to other specified factors, initial encounter; M75.102 Unspecified rotator cuff tear or rupture of left shoulder, not specified as traumatic; M19.012 Primary osteoarthritis, left shoulder
CPT/HCPCS: 73221

== ENCOUNTER 2025-06-19 14:50 | Outpatient (CLI) | payer MEDICARE, SELFPAY ==
--- OUTSIDE RECORDS SUMMARY | 2025-05-09 05:15 | XMS_ITS ---
Author Organization [facility] Address [address] [place] [address] [address] [place] [address] Care Team Providers Care Merchandise Carrier Name Role Phone Eliezer Sherri Unavailable [phone] Ines Mcclain PA-C Encounters Encounter Location Date Provider Diagnosis [facility] [address] [place] [address] [address] [place] [address] 05/09/2025 Ines Mcclain Plan Of Treatment Next Appt Details Provider Name:James Merrill rg, 06/20/2025 10:00:00 AM, [address] [place] [address], [address], [place], [address], Progress Notes * Lucho GALLO DDOB:08/1939 (85 yo M)Acc No.[id number]:05/09/2025 Progress Notes Patient: Katerina MCKEONAILEENNicoleLucho Appointment Provider: TAMMIE Garcia :1940 A ge:85 Y S ex:Male Date:05/09/2025 Address:[address] [place] [id number] Subjective: * Chief Complaints: * * Medical History: Objective: * Vitals: Assessment: Plan: * Treatment: * Billing Information: * Visit Code: * Procedure Codes: * Electronic signature of TAMMIE Shields PA-C on 06/19/2025 at 05:08 PM APPLICATION PACKAGING CONSULTANT Sign off status: Pending * Appointment Provider: TAMMIE Garcia Date: 07/09/2024 Generated for Printing/Faxing/eTransmitting on: 08/20/2024 05:08 PM APPLICATION PACKAGING CONSULTANT
--- OUTSIDE RECORDS SUMMARY | 2025-06-15 04:00 | XMS_ITS ---
Author Organization [facility] Address [address] [place] [address] [address] [place] [address] Care Team Providers Care Office Technology Professor Name Role Phone EliezerSherri Unavailable [phone] Ines Mcclain PA-C REASON FOR VISIT meds, review MRI Encounters Encounter Location Date Provider Diagnosis [facility] [address] [place] [address] [address] [place] [address] 06/15/2025 Ines Mcclain Plan Of Treatment Next Appt Details Provider Name:James Merrill rg, 06/20/2025 10:00:00 AM, [address] [place] [address], [address], [place], [address], Progress Notes * Lucho GALLO DDOB:08/1939 (85 yo M)Acc No.[id number]:06/15/2025 Progress Notes Patient: Katerina MCKEONAILEENNicoleLucho Appointment Provider: TAMMIE Garcia :1940 A ge:85 Y S ex:Male Date:06/15/2025 Address:[address] [place] [address] [place], [place] Subjective: * Chief Complaints: * 1 . meds, review MRI. * Medical History: Objective: * Vitals: Assessment: Plan: * Treatment: * Billing Information: * Visit Code: * Procedure Codes: * Electronic signature of TAMMIE Shields PA-C on 06/19/2025 at 05:01 PM RESEARCH TECH Sign off status: Pending * Appointment Provider: TAMMIE Garcia Date: 1 08/16/2024 Generated for Printing/Fagemg/eTransmitting on: 1 08/20/2024 05:01 PM RESEARCH TECH
--- NOTE | ~2025-06-19 | MR_ITS ---
EXAM/PROCEDURE: MR shoulder RT wo con HISTORY: Shoulder pain COMPARISON: None available. TECHNIQUE: Multiplanar right shoulder MRI without contrast FINDINGS: No fracture subluxation or dislocation seen. 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 Large retracted supraspinatus tear present with the tendon retracted approximately 5 cm to the level of the superior glenoid rim. Atrophic changes in the supraspinatus muscle suggest chronic component. Small fluid component within the infraspinatus tendon which extends to the insertion which appears intact. The teres minor and subscapularis are intact with moderate thickening and abnormal signal in the subscapularis tendon. No definite labral tear. The long head biceps tendon is thickened and has abnormal signal in the bicipital groove. The superior labral attachment is partially visualized and appears intact. Spinoglenoid recess and suprascapular notch regions appear intact. Subchondral edematous appearing changes at the greater tuberosity. IMPRESSION: 1. Large retracted full-thickness supraspinatus tendon tear. Edematous changes in the greater tuberosity may represent acute stress reaction. Atrophic changes of the supraspinatus muscle suggest chronic component. There is also longitudinal split tear with fluid signal in the infraspinatus tendon. 2. Advanced tendinosis or possible partial-thickness tear of the long head of the biceps tendon extending to the labral attachment. 3. 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 Large retracted full-thickness supraspinatus tendon tear. Edematous changes in the greater tuberosity may represent acute stress reaction. Atrophic changes of the supraspinatus muscle suggest chronic component. There is also longitudi nal split tear with fluid signal in the infraspinatus tendon. 2. Advanced tendinosis or possible partial-thickness tear of the long head of t he biceps tendon extending to the labral attachment. 3. 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
--- OUTSIDE RECORDS SUMMARY | 2025-06-19 17:01 | XMS_ITS | Clinical Summary ---
Author Organization [facility] Address [address] [place] [address] Care Team Providers Care Freelance Operator Name Role Phone Gabi Conti PA-C Primary Care Provider [phone] Allergies No known active allergies Medications No known medications Encounters Date Type Department Care Team Description 04/18/2025 7:50 AM CDT - 04/18/2025 11:59 PM CDT Hospital Encounter [facility] [address] [place] [address] Gabi Conti PA-C Discharge Disposition: Home or Self Care (Routine Discharge) 04/18/2025 Orders Only [facility] [address] [place] [address] Gabi Conti PA-C 04/18/2025 Travel from Last 3 Months Social History Tobacco Use Types Packs/Day Years [...] Vaccine: 50+ Years (2 of 2 - PCV20 or PCV21) 04/26/2017 04/26/2016 COVID-19 Vaccine (3 - season) 2025 09/29/2020, 09/01/2020 Influenza Adult (#1) 2025 04/11/2019, 02/14/2018, 04/26/2016, Additional history exists DTaP, Tdap and Td Vaccines (2 - Td or Tdap) 11/21/2025 11/22/2015 Hepatitis A Vaccines Aged Out No long er eligible based on patient's age to complete this topic Meningococcal B Vaccine Aged Out No l onger eligible based on patient's age to complete this topic Meningococcal Vaccine Aged Out No mark baljeet eligible based on patient's age to complete this topic RSV Immunizations Under 20 Months Aged Out No longer eligible based on patient's age to complete this topic Procedures Procedure Name Priority Date/Time Associated Diagnosis Comments HC VITAMIN B12 Routine 04/18/2025 8:06 AM CDT Dizziness and giddiness Testicular failure Personal history of high risk medication treatment HC THYROID STIMULATING HORM Routine 04/18/2025 8:06 AM CDT Dizziness and giddiness Testicular failure Personal history of high risk medication treatment HC COMPREHENSIVE METABOL PANEL Routine 04/18/2025 8:06 AM CDT Dizziness and giddiness Testicular failure Personal history of high risk medication treatment HC CBC AUTO W/AUTO DIFF Routine 04/18/2025 8:06 AM CDT Dizziness and giddiness Testicular failure Personal history of high risk medication treatment from Last 3 Months Results * VITAMIN B-12 (04/18/2025 8:06 AM CDT) VITAMIN B12 S/P/B 351 193 - 986 PG/ML 04/18/2025 9:39 AM CDT [facility] 04/18/2025 8:06 AM CDT us Gabi Conti PA-C LABORATORY Final Resu lt [facility] [address] [facility] [place] [address], [place] [phone] * (ABNORMAL) COMPREHENSIVE METABOLIC PANEL (04/18/2025 8:06 AM CDT) Pathologist [facility] GLUCOSE 89 70 - 99 MG/DL 04/18/2025 8:55 AM CDT [facility] BUN 25(H) 7 - 18 MG/DL 04/18/2025 8:55 AM CDT [facility] CREATININE S/P/B 1.26 0.7 - 1.3 MG/DL 04/18/2025 8:55 AM CDT [facility] SODIUM S/P/B 140 136 - 145 MMOL/L 04/18/2025 8:55 AM CDT [facility] POTASSIUM S/P/B 4.5 3.5 - 5.1 MMOL/L 04/18/2025 8:55 AM CDT [facility] CHLORIDE S/P/B 107 100 - 108 MMOL/L 04/18/2025 8:55 AM CDT [facility] CO2 28.3 21 - 32 MMOL/L 04/18/2025 8:55 AM CDT [facility] CALCIUM S/P/B 9.3 8.5 - 10.1 MG/DL 04/18/2025 8:55 AM CDT [facility] BILIRUBIN TOTAL S/P/B 0.6 0.2 - 1.2 MG/DL 04/18/2025 8:55 AM T [facility] TOTAL PROTEIN S/P/B 6.8 6.4 - 8.2 G/DL 04/18/2025 8:55 AM T [facility] ALBUMIN S/P/B 3.6 3.4 - 5.0 G/DL 04/18/2025 8:55 AM T [facility] AST 21 15 - 37 U/L 04/18/2025 8:55 AM T [facility] ALT 14(L) 16 - 60 U/L 04/18/2025 8:55 AM [facility] ALKALINE PHOSPHATASE S/P/B 102 50 - 136 U/L 04/18/2025 8:55 AM [facility] ANION GAP 4.7(L) 5 - 15 MMOL/L 04/18/2025 8:55 AM [facility] BUN CREATININE RATIO 19.8 6 - 26 04/18/2025 8:55 AM [facility] A/G RATIO 1.1 1.0 - 2.0 RATIO 04/18/2025 8:55 AM [facility] GFR ESTIMATE 55(L) >90 ML/MIN/1.7 3 M2 04/18/2025 8:55 AM [facility] Comment: NOTE: eGFR is not calculated for patients <18 years of age. This is an estimated GFR calculation using the new CKD EPI creatinine equation without race and so does not require a correction factor for race. This estimated GFR should not be used for calculating drug doses. 04/18/2025 8:06 AM CDT us Gabi Conti PA-C LABORATORY Final Resu lt [facility] [address] [place] [address], [place] [phone] * (ABNORMAL) CBC W/DIFF AUTOMATED (04/18/2025 8:06 AM CDT) WBC 4.67 4.4 - 11.0 x10'3/uL 04/18/2025 8:17 AM CDT [facility] RBC 4.09(L) 4.50 - 5.90 x10'6/uL 04/18/2025 8:17 AM CDT [facility] HGB 12.9(L) 14.0 - 17.5 G/DL 04/18/2025 8:17 AM CDT [facility] HCT 38.6(L) 41.5 - 50.4 % 04/18/2025 8:17 AM CDT [facility] MCV 94.4 80.0 - 96.0 FL 04/18/2025 8:17 AM CDT [facility] MCH 31.5(H) 26.5 - 31.4 PG 04/18/2025 8:17 AM CDT [facility] MCHC 33.4 31.9 - 34.8 G/DL 04/18/2025 8:17 AM CDT [facility] RDW 12.3 12.3 - 14.3 % 04/18/2025 8:17 AM CDT [facility] PLT 158 151 - 353 x10'3/uL 04/18/2025 8:17 AM CDT [facility] MPV 9.3(L) 9.7 - 11.9 FL 04/18/2025 8:17 AM CDT [facility] RBC MORPHOLOGY NORMAL 04/18/2025 8:17 AM CDT [facility] PLT MORPH. NORMAL 04/18/2025 8:17 AM CDT [facility] WBC MORPHOLOGY NORMAL 04/18/2025 8:17 AM CDT [facility] LYMPHOCYTES % 26.3 15.8 - 45.0 % 04/18/2025 8:17 AM CDT [facility] NEUTROPHILS % 59.4 42.1 - 71.9 % 04/18/2025 8:17 AM CDT [facility] MONOCYTES % 10.3 5.7 - 12.5 % 04/18/2025 8:17 AM CDT [facility] EOSINOPHILS 3.2 0.0 - 5.6 % 04/18/2025 8:17 AM CDT [facility] BASOPHILS 0.6 0.0 - 1.3 % 04/18/2025 8:17 AM CDT [facility] ABS. NEUTROPHILS 2.77 1.40 - 6.00 x10'3/uL 04/18/2025 8:17 AM CDT [facility] IMMATURE GRANS % 0.2 0.0 - 0.5 % 04/18/2025 8:17 AM CDT [facility] ABS. LYMPHOCYTES 1.23 0.80 - 4.70 x10'3/uL 04/18/2025 8:17 AM CDT [facility] 04/18/2025 8:06 AM CDT us Gabi Conti PA-C LABORATORY Final Resu lt [facility] [address] [place] [address], * THYROID STIM HORMONE TSH (04/18/2025 8:06 AM CDT) TSH 1.945 0.358 - 3.74 uIU/ML 04/18/2025 8:55 AM CDT [facility] Comment: HIGH DOSES OF BIOTIN MAY INTERFERE WITH THIS TEST RESULT. CORRELATION TO CLINICAL HISTORY AND PRESENTATION RECOMMENDED. 04/18/2025 8:06 AM CDT Gabi Conti PA-C LABORATORY Final Resu lt [facility] [address] [place] [address], [place] [phone] from Last 3 Months Insurance Care Teams Freelance Operator Relationship Specialty Start Date End Date Gabi Conti PA-C [address] [place] [address] [address] [place] [address] PCP - General PHYSICIAN GATEMAN 02/13/23
--- OUTSIDE RECORDS SUMMARY | 2025-06-19 17:01 | XMS_ITS | Clinical Summary ---
Author Organization [facility] Address [address] [place] [address] Care Team Providers Care Svp Programmatic Tv Name Role Phone Vivek Lee MD Primary Care Provider +1- [phone] Source Comments [facility],non-owned Affiliates and Associated Physician Practices is amultiple site organization consisting of ambulatory clinics and hospital sitesin [place], [place], [place] and [place]. This disclosure is being madepursuant to the Care Everywhere program and may not contain all information available regarding this patient. 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
--- OUTSIDE RECORDS SUMMARY | 2025-06-19 17:01 | XMS_ITS | Clinical Summary ---
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
--- OUTSIDE RECORDS SUMMARY | 2025-06-19 17:02 | XMS_ITS | Encounter Summary ---
Author Organization [facility] Facility Care Team Providers Care Credit Adjuster Name Role Phone Vivek Lee MD Primary Care Provider +1- [phone] Unknown, Notinfile Primary Care Provider Unavail able Vivek Lee MD Primary Care Provider +- [phone] Encounter Details Date Type Department Care Team (Latest Contact Info) Description 11/22/2015 Orders Only [facility]INCON[facility] ProviderKody MD [address] [place] [address] Social History Tobacco Use Types Packs/Day Years Used Date Smoking Tobacco: Never Sex and Gender Information Value Date Recorded Sex Assigned at Not on file Legal Sex Male 1:18 PM 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
--- OUTSIDE RECORDS SUMMARY | 2025-06-19 17:05 | XMS_ITS | Encounter Summary ---
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 Historical Provider Final Res ult * SCAN - LABS (06/11/2017 12:00 AM MAIL CARRIERS SUPERVISOR) Narrative 06/11/2017 12:00 AM MAIL CARRIERS SUPERVISOR Ordered by an unspecified provider. Historical Provider Final Res ult documented in this encounter Visit Diagnoses Not on filedocumented in this encounter Care Teams Retail Store Assistant Relationship Specialty Start Date End Date Vivek Lee MD PCP - General 03/17/17 05/06/22 documented as of this encounter
--- OUTSIDE RECORDS SUMMARY | 2025-06-19 17:05 | XMS_ITS | Encounter Summary ---
Author Organization [facility] Facility Care Team Providers Care Life Specialist Name Role Phone Vivek Lee MD Primary Care Provider +1- [phone] Unknown, Notinfile Primary Care Provider Unavail able Vivek Lee MD Primary Care Provider +1- [phone] Encounter Details Date Type Department Care Team (Latest Contact Info) Description 12/31/2016 Orders Only [facility] ProviderKody MD [address] [place] [address] Social History Tobacco Use Types Packs/Day Years Used Date Smoking Tobacco: Never Sex and Gender Information Value Date Recorded Sex Assigned at Not on file 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
--- OUTSIDE RECORDS SUMMARY | 2025-06-19 17:05 | XMS_ITS | Encounter Summary ---
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
--- OUTSIDE RECORDS SUMMARY | 2025-06-19 17:05 | XMS_ITS | Encounter Summary ---
Author Organization [facility] Facility Care Team Providers Care Behavioral Health Worker Name Role Phone Vivek Lee MD Primary Care Provider +1- [phone] Unknown, Notinfile Primary Care Provider Unavail able Vivek Lee MD Primary Care Provider +- [phone] Encounter Details Date Type Department Care Team (Latest Contact Info) Description 11/12/2016 Orders Only [facility] ProviderKody MD [address] [place] [address] Social History Tobacco Use Types Packs/Day Years Used Date Smoking Tobacco: Never Sex and Gender Information Value Date Recorded Sex Assigned at Not on file Legal Sex Male 1:[address]/MEDICAL 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
--- OUTSIDE RECORDS SUMMARY | 2025-06-19 17:07 | XMS_ITS | Encounter Summary ---
Author Organization [facility] Address 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
--- OUTSIDE RECORDS SUMMARY | 2025-06-19 17:07 | XMS_ITS | Encounter Summary ---
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
--- OUTSIDE RECORDS SUMMARY | 2025-06-19 17:08 | XMS_ITS | Encounter Summary ---
[facility] Organization [facility] Address [address] [place] [address] Care Team Providers Care Heel Trimmer Name Role Phone Vivek Lee MD Primary Care Provider Encounter Details Date Type Department Care Team (Late st Contact Info) Description 04/24/2003 Outpatient Historical [facility] Support Serv. ([facility] Cardiology[facility]) [address] 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
--- OUTSIDE RECORDS SUMMARY | 2025-06-19 17:08 | XMS_ITS | Encounter Summary ---
Author Organization [facility] Address 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
--- OUTSIDE RECORDS SUMMARY | 2025-06-19 17:09 | XMS_ITS | Patient Health Record ---
Author Organization [facility] Address [address] [place] [address] Care Team Providers Care Computer Systems Software Architect Name Role Phone Eliezer Sherri Unavailable [phone] Ines Mcclain PA-C Unavailable Farida Mack Unavailable [phone] James Martins Unavailable [phone] Allergies No Known Allergies Results Component Value Reference Range Notes Footfall123 Profil e Reviewed date:10/19/2024 04:55:15 PM Interpretation: Performing Lab:[facility] (CLIA#: [id number]), [address] [place] [address], Director - Madai Richards Notes/Report: These tests were developed and their performance characteristics determined by [facility]. They have not been cleared or approved by the [place] Food and Drug Administration. Certifying Systems Administrator: Raj Brown (Remote [id number]) Analyzed at [facility] (CLIA#: [id number]) - [address] [place] [address] - Snap Attacher: Madai Spencer Oxycodone Ur CMP 2767 >=100 [...] Ql Cfm <1 >=1 ng/mL NONE DETECTED CRYOGENICS REPAIRER Not Otherwise Specified Ur Ql Cfm <1 >=1 ng/mL NONE DETECTED Synthetic Cannabinoids Ur Ql Cfm <1 >=1 ng/m L NONE DETECTED Hallucinogens/Dissociatives Ur Ql Cfm <1 >=1 ng/mL NONE DETECTED Bilingual Call Center Representative Benzodiazepines Ur Ql Cfm <1 >=1 ng/mL NONE DETECTED Bilingual Call Center Representative Opioids Ur Ql Cfm <1 >=1 ng/mL N ONE DETECTED THC Ur Ql Scn <20 >=20 ng/mL NONE DETECTED Footfall123 Profil e Reviewed date:04/16/2025 12:21:02 PM Interpretation: Performing Lab:[facility] (CLIA#: [id number]), [address] [place] [address], [place] [address], Director - Madai Richards Notes/Report: These tests were developed and their performance characteristics determined by [facility]. They have not been cleared or approved by the [place] Food and Drug Administration. Certifying Systems Administrator: Leia Fine (Remote [id number]) Analyzed at [facility] (CLIA#: [id number]) - [address] [place] [address] - Snap Attacher: Madai Spencer Benzodiaz Ur CMP <50 >=50 ng/mL NON-COMPLIA NT: Test result indicates patient may not be taking drug prescribed. Oxycodone Ur CMP 1229 >=100 ng/mL COMPLIANT: Test result is consistent and expected with prescribed drug. BioDetect EXPECTED Test result is consistent with routinely analyzed human urine. 6MAM Ur Ql Cfm <10 >=10 ng/mL NONE DETECTED Amphetamines Ur Ql Cfm <100 >=100 ng/mL NONE DETECTED Benzodiaz Ur Ql Cfm <25 >=25 ng/mL NONE DET ECTED Buprenorphine Ur Ql [...] >=100 >=100 ng/mL POSITIVE Oxymorphone Ur Cfm-mCnc 274 >=100 ng/mL POSI TIVE Noroxycodone Ur Cfm-mCnc 840 >=100 ng/mL POS ITIVE Oxycodone Ur Cfm-mCnc 115 >=100 ng/mL POSITI VE Pregabalin(Lyrica) Ur Ql Cfm <5 >=5 mcg/mL NONE DETECTED Tramadol Ur Ql Cfm <100 >=100 ng/mL NONE DETE CTED Creat Ur-mCnc 40.5 20 - 370 mg/dL NORMAL Creatinine and pH are performed for specimen validity and not diagnostic purposes. pH Ur 7.42 4.5 - 9.0 NORMAL Creatinine and pH are performed for specimen validity and not diagnostic purposes. Alcohol Metabolites Ur Ql Cfm <200 >=200 ng/mL NONE DETECTED Ethyl sulfate Ur Cfm-mCnc <200 >=200 ng/mL NO NE DETECTED Synthetic Stimulants Ur Ql Cfm <1 >=1 ng/mL NONE DETECTED CRYOGENICS REPAIRER Not Otherwise Specified Ur Ql Cfm <1 >=1 ng/mL NONE DETECTED Synthetic Cannabinoids Ur Ql Cfm <1 >=1 ng/m L NONE DETECTED Hallucinogens/Dissociatives Ur Ql Cfm <1 >=1 ng/mL NONE DETECTED Bilingual Call Center Representative Benzodiazepines Ur Ql Cfm <1 >=1 ng/mL NONE DETECTED Bilingual Call Center Representative Opioids Ur Ql Cfm <1 >=1 ng/mL N ONE DETECTED THC Ur Ql Scn <20 >=20 ng/mL NONE DETECTED Reason For Referral No Information Medications Medication SIG (Take, Route, Frequency, Duration) Notes Start Date End Date Status oxyCODONE-Acetaminophe n 10-325 MG 1 tablet as needed Orally twice per day; Duration: 30 days DO NOT FILL UNTIL 05/21/25 05/11/2025 Active Naloxone HCl 4 MG/0.1ML as directed Nasally in an opioid emergency; Duration: 1 days 02/07/2025 Active Diclofenac Sodium 1 % APPLY 4GM TO THE AFFECTED AREA EVERY 4 HOURS NEEDED External; Duration: 30 Days Active Mesalamine 1.2 GM TAKE 1 TABLET BY MOUTH TWICE DAILY Oral; Duration: 90 Days Active Dutasteride 0.5 MG Oral; Duration: 90 Days Active Tamsulosin HCl 0.4 MG TAKE 1 CAPSULE BY MOUTH TWICE DAILY DIRECTED Oral; Duration: 90 Days Active Valium 10 MG 1 tablet Orally Once a day; Duration: 1 days Take 1 tab 1 hour prior to MRI, Second tab upon arrival of MRI 06/19/2025 Active Problems Problem Type SNOMED Code ICD Code Onset Dates Problem Status W/U Status Risk Notes Problem Pain of right shoulder region (finding) (4097860993) Pain in right shoulder (M25.511) Active confirmed Problem High risk drug monitoring status (299926388) group home (current) use of opiate analgesic (Z79.891) Active confirmed Problem Cervical spondylosis (468903291) Cervical spondylosis (M47.812) Active confirmed Problem Lumbar spondylosis (258325158) Lumbar spondylosis (M47.816) Active confirmed Problem Thoracic spondylosis (432142991) Thoracic spondylosis (M47.814) Active confirmed Problem Lumbar pain (083917891) Lumbar pain (M54.50) Active confirmed Problem Lumbar radiculopathy (434568092) Lumbar radiculopathy (M54.16) Active confirmed Problem Lumbar post-laminectomy syndrome (516606168) Lumbar postlaminectomy syndrome (M96.1) Active confirmed Problem Arthralgia of the pelvic region and thigh (567743275) Hip pain, right (M25.551) Active confirmed Problem Hypertension (55738074) Hypertension (I10) Active confirmed Problem History of total replacement of left hip joint (5980236501218870 ) Status post total hip replacement, 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 Problem History of left hip replacement (2268986325524658 ) History of left hip replacement (Z96.642) Active confirmed Problem Osteoarthritis (920891186) Osteoarthritis (M19.90) Active confirmed Problem Cervical pain (92408195) Cervical pain (M54.2) Active confirmed Vital Signs Heart Rate 60 /min 05/11/2025 Height-cm 185.42 cm 05/11/2025 Blood pressure diastolic 72 mm Hg 05/11/2025 Weight-kg 95.26 kg 05/11/2025 Height 6ft 1in in 05/11/2025 Blood pressure systolic 154 mm Hg 05/11/2025 Weight 210 lbs 05/11/2025 BMI 27.7 kg/m2 05/11/2025 Encounters Encounter Location Date Provider Diagnosis [facility] [address] [place] [address] 07/21/2024 Ines Marstall Lumbar pain M54.50 ; Lumbar spondylosis M47.816 ; Hip pain, right M25.551 ; Osteoarthritis M19.90 and group home (current) use of opiate analgesic Z79.891 [facility] [address] [place] [address] [address] [place] [address] 08/18/2024 Ines Marstall Pain in right shoulder M25.511 ; Hip pain, right M25.551 ; Lumbar pain M54.50 ; History of left hip replacement Z96.642 ; packer fuser (current) use of opiate analgesic Z79.891 ; Lumbar spondylosis M47.816 ; Status post total hip replacement, left Z96.642 ; Lumbar radiculopathy M54.16 ; Osteoarthritis M19.90 and Hypertension I10 [facility] [address] [place] [address] 09/15/2024 Ines Marstall Pain in right shoulder M25.511 ; Lumbar pain M54.50 ; History of left hip replacement Z96.642 ; group home (current) use of opiate analgesic Z79.891 ; Lumbar spondylosis M47.816 ; Lumbar radiculopathy M54.16 ; Osteoarthritis M19.90 ; Hypertension I10 and Hip pain, right M25.551 [facility] [address] [place] [address] 10/13/2024 Ines Marstall Pain in right shoulder M25.511 ; Lumbar pain M54.50 ; History of left hip replacement Z96.642 ; group home (current) use of opiate analgesic Z79.891 ; Lumbar spondylosis M47.816 ; Lumbar radiculopathy M54.16 ; Osteoarthritis M19.90 ; Hypertension I10 and Hip pain, right M25.551 [facility] [address] [place] [address] 11/10/2024 Farida Mack Lumbar pain M54.50 ; History of left hip replacement Z96.642 ; Lumbar spondylosis M47.816 ; Lumbar radiculopathy M54.16 ; Osteoarthritis M19.90 ; Hypertension I10 and group home use of drug Z79.899 [facility] [address] [place] [address] 11/10/2024 James Martins Lumbar spondylosis M47.816 ; Thoracic spondylosis M47.814 ; Cervical spondylosis M47.812 and Right hip pain M25.551 [facility] [address] [place] [address] 12/15/2024 Ines Marstall Lumbar pain M54.50 ; Lumbar spondylosis M47.816 ; Lumbar radiculopathy M54.16 ; Pain in right shoulder M25.511 ; History of left hip replacement Z96.642 ; group home (current) use of opiate analgesic Z79.891 ; Osteoarthritis M19.90 ; Hypertension I10 ; Hip pain, right M25.551 ; Thoracic spondylosis M47.814 ; Cervical pain M54.2 and Cervical spondylosis M47.812 [facility] [address] [place] [address] [address] [place] [address] 01/12/2025 Ines Marstall Pain in right shoulder M25.511 ; Lumbar pain M54.50 ; History of left hip replacement Z96.642 ; packer fuser (current) use of opiate analgesic Z79.891 ; Lumbar spondylosis M47.816 ; Lumbar radiculopathy M54.16 ; Osteoarthritis M19.90 ; Hypertension I10 ; Hip pain, right M25.551 ; Thoracic spondylosis M47.814 ; Cervical pain M54.2 and Cervical spondylosis M47.812 [facility] [address] [place] [address] [address] [place] [address] 02/07/2025 James Eliezer Pain in right should er M25.511 ; Lumbar pain M54.50 ; History of left hip replacement Z96.642 ; group home (current) use of opiate analgesic Z79.891 ; Lumbar spondylosis M47.816 ; Lumbar radiculopathy M54.16 ; Osteoarthritis M19.90 ; Hypertension I10 ; Hip pain, right M25.551 ; Thoracic spondylosis M47.814 ; Cervical pain M54.2 ; Cervical spondylosis M47.812 ; Lumbar postlaminectomy syndrome M96.1 ; Right hip pain M25.551 and Status post total hip replacement, left Z96.642 [facility] [address] [place] [address] [address] [place] [address] 03/14/2025 Ines Marstall Lumbar spondylosis M47.816 ; History of left hip replacement Z96.642 ; Lumbar pain M54.50 and packer fuser (current) use of opiate analgesic Z79.891 [facility] [address] [place] [address] [address] [place] [address] 03/14/2025 Ines Marstall Left shoulder pain M25.512 [facility] [address] [facility] [address] [place] [address] 04/11/2025 Ines Marstall Pain in right shoulder M25.511 ; Left shoulder pain M25.512 ; Lumbar pain M54.50 ; History of left hip replacement Z96.642 ; packer fuser (current) use of opiate analgesic Z79.891 ; Lumbar spondylosis M47.816 ; Lumbar radiculopathy M54.16 ; Osteoarthritis M19.90 ; Hypertension I10 ; Hip pain, right M25.551 ; Thoracic spondylosis M47.814 ; Cervical pain M54.2 ; Cervical spondylosis M47.812 ; Lumbar postlaminectomy syndrome M96.1 and Status post total hip replacement, left Z96.642 [facility] [address] [facility] [address] [place] [address] 05/11/2025 Ines Marstall Pain in right shoulder M25.511 ; Lumbar pain M54.50 ; History of left hip replacement Z96.642 ; Lumbar spondylosis M47.816 and group home (current) use of opiate analgesic Z79.891 [facility] [address] [facility] [address] [place] [address] 07/21/2024 James Martins [facility] [address] [facility] [address] [place] [address] 08/18/2024 James Martins [facility] [address] [place] [address] [address] [place] [address] 09/15/2024 James Martins [facility] [address] [facility] [address] [place] [address] 10/13/2024 James Martins [facility] [address] [facility] [address] [place] [address] 11/10/2024 Sherri Martins [facility] [address] [facility] [address] [place] [address] 12/15/2024 James Martins [facility] [address] [place] [address] [address] [place] [address] 01/12/2025 James Martins [facility] [address] [place] [address] 01/19/2025 James Eliezer [facility] [address] [place] [address] 02/07/2025 James Eliezer [facility] [address] [place] [address] 03/14/2025 James Eliezer [facility] [address] [place] [address] 04/11/2025 James Eliezer [facility] [address] [place] [address] 05/11/2025 James Eliezer [facility] [address] [place] [address] 06/14/2025 James Eliezer [facility] [address] [place] [address] 06/19/2025 Sherri Martins Assessments Encounter Date Diagnosis (ICD Code) Assessment Notes Treatment Notes Treatment Clinical Notes Section Notes 07/21/2024 Lumbar spondylosis (ICD-10 - M47.816) 07/21/2024 [...] Pain in right shoulder (ICD-10 - M25.511) 03/14/2025 History of left hip replacement (ICD-10 - Z96.642) 03/14/2025 Left shoulder pain (ICD-10 - M25.512) Prescription for controlled substance sent to supervising physician for renewal 04/11/2025 Pain in right shoulder (ICD-10 - M25.511) Prescription for controlled substance sent to supervising physician for renewal L shoulder SA injection today if no better consider MRI left shoulder PT L AC vs bicep tendon injection deep tissue treatments 2x week for 6 visits 03/14/2025 Lumbar spondylosis (ICD-10 - M47.816) Prescription for controlled substance sent to supervising physician for renewal 04/11/2025 Left shoulder pain (ICD-10 - M25.512) 05/11/2025 Pain in right shoulder (ICD-10 - M25.511) arthrogram left shoulder order faxed to Hospital 03/14/2025 Lumbar pain (ICD-10 - M54.50) 04/11/2025 Lumbar pain (ICD-10 - M54.50) 05/11/2025 Lumbar pain (ICD-10 - M54.50) Prescription for controlled substance sent to supervising physician for renewal 02/07/2025 Lumbar pain (ICD-10 - M54.50) 12/15/2024 Lumbar radiculopathy (ICD-10 - M54.16) 01/12/2025 Lumbar pain (ICD-10 - M54.50) Prescription for controlled substance sent to supervising physician for renewal 11/10/2024 Thoracic spondylosis (ICD-10 - M47.814) 11/10/2024 Lumbar spondylosis (ICD-10 - M47.816) 10/13/2024 Lumbar pain (ICD-10 - M54.50) 09/15/2024 Lumbar pain (ICD-10 - M54.50) Prescription for controlled substance sent to supervising physician for renewal 08/18/2024 Lumbar pain (ICD-10 - M54.50) Prescription for controlled substance sent to supervising physician for renewal 07/21/2024 Hip pain, right (ICD-10 - M25.551) 07/21/2024 Osteoarthritis (ICD-10 - M19.90) 08/18/2024 History [...] of left hip replacement (ICD-10 - Z96.642) 05/11/2025 History of left hip replacement (ICD-10 - Z96.642) 03/14/2025 group home (current) use of opiate analgesic (ICD-10 - Z79.891) 04/11/2025 History of left hip replacement (ICD-10 - Z96.642) 05/11/2025 Lumbar spondylosis (ICD-10 - M47.816) 04/11/2025 packer fuser (current) use of opiate analgesic (ICD-10 - Z79.891) 02/07/2025 group home (current) use of opiate analgesic (ICD-10 - Z79.891) 01/12/2025 packer fuser (current) use of opiate analgesic (ICD-10 - Z79.891) 12/15/2024 History of left hip replacement (ICD-10 - Z96.642) 11/10/2024 Osteoarthritis (ICD-10 - M19.90) 11/10/2024 Right hip pain (ICD-10 - M25.551) 10/13/2024 packer fuser (current) use of opiate analgesic (ICD-10 - Z79.891) 09/15/2024 packer fuser (current) use of opiate analgesic (ICD-10 - Z79.891) 08/18/2024 packer fuser (current) use of opiate analgesic (ICD-10 - Z79.891) 07/21/2024 group home (current) use of opiate analgesic (ICD-10 - Z79.891) 08/18/2024 Lumbar spondylosis (ICD-10 - M47.816) 09/15/2024 Lumbar spondylosis (ICD-10 - M47.816) 10/13/2024 Lumbar spondylosis (ICD-10 - M47.816) 12/15/2024 group home (current) use of opiate analgesic (ICD-10 - Z79.891) 11/10/2024 Hypertension (ICD-10 - I10) 01/12/2025 Lumbar spondylosis (ICD-10 - M47.816) 02/07/2025 Lumbar spondylosis (ICD-10 - M47.816) 05/11/2025 group home (current) use of opiate analgesic (ICD-10 - Z79.891) 04/11/2025 Lumbar spondylosis (ICD-10 - M47.816) 04/11/2025 Lumbar radiculopathy (ICD-10 - M54.16) 02/07/2025 Lumbar radiculopathy (ICD-10 - M54.16) 01/12/2025 Lumbar radiculopathy (ICD-10 - M54.16) 12/15/2024 Osteoarthritis (ICD-10 - M19.90) 11/10/2024 group home use of drug (ICD-10 - Z79.899) 10/13/2024 Lumbar radiculopathy (ICD-10 - M54.16) 09/15/2024 Lumbar radiculopathy (ICD-10 - M54.16) 08/18/2024 Status post total hip replacement, left (ICD-10 - Z96.642) 09/15/2024 Osteoarthritis (ICD-10 - M19.90) 08/18/2024 Lumbar radiculopathy (ICD-10 - M54.16) 10/13/2024 Osteoarthritis (ICD-10 - M19.90) 01/12/2025 Osteoarthritis (ICD-10 - M19.90) 12/15/2024 Hypertension (ICD-10 - I10) 02/07/2025 Osteoarthritis (ICD-10 - M19.90) 04/11/2025 Osteoarthritis (ICD-10 - M19.90) 04/11/2025 Hypertension (ICD-10 - I10) 02/07/2025 Hypertension (ICD-10 - I10) 01/12/2025 Hypertension (ICD-10 - I10) 12/15/2024 Hip pain, right (ICD-10 - M25.551) 10/13/2024 Hypertension (ICD-10 - I10) 08/18/2024 Osteoarthritis (ICD-10 - M19.90) 09/15/2024 Hypertension (ICD-10 - I10) 09/15/2024 Hip pain, right (ICD-10 - M25.551) 08/18/2024 Hypertension (ICD-10 - I10) 10/13/2024 Hip pain, right (ICD-10 - M25.551) 12/15/2024 Thoracic spondylosis (ICD-10 - M47.814) 01/12/2025 Hip pain, right (ICD-10 - M25.551) 02/07/2025 Hip pain, right (ICD-10 - M25.551) 04/11/2025 Hip pain, right (ICD-10 - M25.551) 04/11/2025 Thoracic spondylosis (ICD-10 - M47.814) 02/07/2025 Thoracic spondylosis (ICD-10 - M47.814) 01/12/2025 Thoracic spondylosis (ICD-10 - M47.814) 12/15/2024 Cervical pain (ICD-10 - M54.2) 12/15/2024 Cervical spondylosis (ICD-10 - M47.812) 01/12/2025 Cervical pain (ICD-10 - M54.2) 02/07/2025 Cervical pain (ICD-10 - M54.2) 04/11/2025 Cervical pain (ICD-10 - M54.2) 04/11/2025 Cervical spondylosis (ICD-10 - M47.812) 02/07/2025 Cervical spondylosis (ICD-10 - M47.812) 01/12/2025 Cervical spondylosis (ICD-10 - M47.812) 02/07/2025 Lumbar postlaminectomy syndrome (ICD-10 - M96.1) 04/11/2025 Lumbar postlaminectomy syndrome (ICD-10 - M96.1) 04/11/2025 Status post total hip replacement, left (ICD-10 - Z96.642) 02/07/2025 Right hip pain (ICD-10 - M25.551) 02/07/2025 Status post total hip replacement, left (ICD-10 - Z96.642) 07/21/2024 Other Body Mass Index : Care [...] Blood Pressure: Care Instructions material was published 01/12/2025 Other High Blood Pressure: Care Instructions material was published 02/07/2025 Other The plan of car e is to consider a low-profile brace. Patient's pain medication is refilled. Patient is using on average 1/day of oxycodone 10. Patient had nasal Narcan called in as well. Risk-benefit alternatives were discussed with patient. 03/14/2025 Other Body Mass Index : Care Instructions material was published, High Blood Pressure: Care Instructions material was published 05/11/2025 Other High Blood Pressure: Care Instructions material was published Plan Of Treatment Pending Test Test Name Order Date X ray : Hip, right 11/10/2024 X ray : Shoulder, left 04/11/2025 X ray : Thoracic spine 2 views X ray : Spines, cervical 4 views 025 MR Lumbar WO 12/15/2024 MR Lumbar WO 01/12/2025 X ray : Spines, lumbar 4 views EtS (Alcohol Metabolite) - Urine 025 EtS (Alcohol Metabolite) - Urine 025 QMP Plus D/L - Urine 04/11/2025 QMP Plus D/L - Urine 10/13/2024 Synthetic Stimulants 10/13/2024 Synthetic Stimulants 04/11/2025 Bilingual Call Center Representative Benzodiazepines 04/11/2025 Bilingual Call Center Representative Benzodiazepines 10/13/2024 Synthetic Cannabinoids 10/13/2024 Synthetic Cannabinoids 04/11/2025 Bilingual Call Center Representative Opioids 04/11/2025 Bilingual Call Center Representative Opioids 10/13/2024 Hallucinogens/Dissociatives 10/13/2024 Hallucinogens/Dissociatives 04/11/2025 CRYOGENICS REPAIRER Other 04/11/2025 CRYOGENICS REPAIRER Other 10/13/2024 Marijuana - Urine 10/13/2024 Marijuana - Urine 04/11/2025 PainComp Medication Compliance - Urine 1 PainComp Medication Compliance - Urine 0 10/13/2024 Aegis Required Information 10/13/2024 Aegis Required Information 04/11/2025 Next Appt Details Provider Name:James Fernandezkatelynnoresets rg, 06/20/2025 10:00:00 AM, [address] [facility], [address], [address], Insurance Providers Payer Name Payer Address Payer Phone Subscriber Number Group Number Insured Name Patient Relationship to Insured Coverage Start Date Coverage End Date [employer] medicare [address] [address] [place] [address] [id number] Lucho Sweet Self - patient is the insured Medications Administered Medication Instructions Date of Administration Dosage Notes Hip Inj Intra-articular 08/18/2024 R bursa injection Shoulder Injection 02/23/2024 Shoulder Injection 04/11/2025 left Medical (General) History Medical History History ICD Code osteoarthritis leg length discrepancy short left 10mm Surgical History Surgery Date(Month/Year) L THR Dr. Proctor 04/24 Hospitalization History Reason Date(Month/Year) no hospitalization since last visit
--- OUTSIDE RECORDS SUMMARY | 2025-06-19 17:09 | XMS_ITS | Encounter Summary ---
Author Organization 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
--- OUTSIDE RECORDS SUMMARY | 2025-06-19 17:09 | XMS_ITS | Patient Health Record ---
Author Organization [employer] Address [address] [facility] Kamaljit. [address] [place] [address] Care Team Providers Care Production Internship Name Role Phone Jesus GARRIDO, Vivek Primary Care Provider Unavailab le Reason For Referral No Information Plan Of Treatment No Information Insurance Providers Payer Name Payer Address Payer Phone Subscriber Number Group Number Insured Name Patient Relationship to Insured Coverage Start Date Coverage End Date Medicare E2 [address] [address] [place] [address] [phone] [id number] Lucho Sweet Self - patient is the insured [facility] [place] [employer] [facility] [employer] [address] [address] [place] [address] [phone] [id number] Plan G Lucho Sweet Self - patient is the insured
--- OUTSIDE RECORDS SUMMARY | 2025-06-19 17:10 | XMS_ITS | Encounter Summary ---
Author Organization [facility] Facility Care Team Providers Care Parachute Packer Name Role Phone Vivek Lee MD Primary Care Provider [phone]- [phone] Unknown, Notinfile Primary Care Provider Unavail able Vivek Lee MD Primary Care Provider + [phone] Encounter Details Date Type Department Care Team (Latest Contact Info) Description 10/17/2015 Orders Only [facility]IN[facility] ProviderKody MD [address] [place] [id number] Social History Tobacco Use Types Packs/Day Years Used Date Smoking Tobacco: Never Sex and Gender Information Value Date Recorded Sex Assigned at Not on file 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
--- OUTSIDE RECORDS SUMMARY | 2025-06-19 17:10 | XMS_ITS | Encounter Summary ---
Author Organization [facility] Facility Care Team Providers Care House Mother Name Role Phone Vivek Lee MD Primary Care Provider [phone]- [phone] Unknown, Notinfile Primary Care Provider Unavail able Vivek Lee MD Primary Care Provider +1- [phone] Encounter Details Date Type Department Care Team (Latest Contact Info) Description 10/11/2015 Orders Only [facility]INCON[facility] ProviderKody MD [address] [place] [id number] Social History Tobacco Use Types Packs/Day Years Used Date Smoking Tobacco: Never Sex and Gender Information Value Date Recorded Sex Assigned at Not on file 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
== END 2025-06-19 14:51 | disposition home or self-care (01) ==
LOC: ANHIMG 14:52
PROVIDERS: PCP Physician Assistant Medical
DX: M75.121 Complete rotator cuff tear or rupture of right shoulder, not specified as traumatic (principal); M19.011 Primary osteoarthritis, right shoulder
CPT/HCPCS: 73221